=== PATIENT | male | born 1975 | race African-American/Black ===

== ENCOUNTER 2024-02-03 12:28 | Outpatient (AMB) | payer OTHER, SELFPAY ==
--- NOTE | 2024-02-03 13:01 | MHC.PC.OV ---
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 PFSH Family History (Updated 02/03/24 @ 13:36 by Zeb Paz MD) Maternal Grandfather Colon cancer Maternal Grandmother Lung cancer Social History (Updated 02/03/24 @ 13:37 by Zeb Paz MD) Housing: House Alcohol intake: never Patient Tobacco Use Status: Never used Tobacco service: No Current occupational status: unemployed Cognitive needs: No Hearing needs: No Vision needs: No Questionnaire PHQ-9 Over the last 2 weeks, how often have you been bothered by any of the following problems? 1. Little interest or pleasure in doing things: not at all 2. Feeling down, depressed, or hopeless: not at all 3. Trouble falling or staying asleep, or sleeping too much: not at all 4. Feeling tired or having little energy: not at all 5. Poor appetite or overeating: not at all 6. Feeling bad about yourself - or that you are a failure or have let yourself or your family down: not at all 7. Trouble concentrating on things, such as reading the newspaper or watching television: not at all 8. Moving or speaking so slowly that other people could have noticed. Or the opposite - being so fidgety or restless that you have been moving around a lot more than usual: not at all 9. Thoughts that you would be better off or of hurting yourself in some way: not at all Total score: 0 Depression Screening Interpretation: Negative Depression Screening Done: Yes 27461 - PHQ-9 Billing: Yes Source: Developed by Drs. Vinh Wang, Eve Burgos, Elpidio Giraldo and colleagues, with an educational jose eduardo from [employer]. Thrive Questionnaire Date Thrive assessed: 02/03/24 I am a: Patient What is your living situation today?: I have a steady place to live Within the past 12 months, did the food you bought not last and you didn't have the money to get more?: Never true Within the past 12 months, did you worry whether your food would run out before you got money to buy more?: Never true Do you have trouble paying for medicines?: No Do you have trouble getting transportation to medical appointments?: No Do you have trouble paying your heating and electricity bill?: No Do you have trouble taking care of your child, family member or friend?: No Do you have trouble with day-to-day activities such as bathing, preparing meals, shopping, managing finances, etc.?: No Are you currently unemployed and looking for a job?: No Are you interested in more education?: No Please select the resources that you would like help with: None Currently or been in a relationship where the following occur: no concerns reported THRIVE Score: 0 AUDIT C Alcohol Use Questionnaire (AUDIT-C) 1. How often do you have a drink containing alcohol?: Never 2. How many drinks containing alcohol do you have on a typical day when you are drinking?: 1 or 2 (0) 3. How often do you have six or more drinks on one occasion?: Never Total Score: 0 JOSE ALEJANDRO-7 AMB Questionnaire JOSE ALEJANDRO-7 Date JOSE ALEJANDRO - 7 assessed: 02/03/24 Feeling nervous, anxious, or on edge: 0 = Not at all Not being able to stop or control worryin = Not at all Worrying too much about different things: 0 = Not at all Trouble relaxin = Not at all Being so restless that it is hard to sit still: 0 = Not at all Becoming easily annoyed or irritable: 0 = Not at all Feeling afraid as if something awful might happen: 0 = Not at all Total JOSE ALEJANDRO-7 score (0-4 normal; 5-9 mild; 10-14 moderate; 15-21 severe): 0 Source: Developed by Drs. Vinh Wang, Eve Burgos, Elpidio Giraldo and colleagues, with an educational jose eduardo from [employer]. JOSE ALEJANDRO-7 Assessment Billing JOSE ALEJANDRO-7 Assessment Tool: JOSE ALEJANDRO-7 Assessment 24159 Physical exam (Primary Care) Vital Signs: Last Vital Signs Pulse 105 H 02/03/24 13:03 BP 122/96 H 02/03/24 13:03 Pulse Ox 99 02/03/24 13:03 Oxygen Delivery Method Room Air 02/03/24 13:03 BMI result Body Mass Index 20.4 Tobacco/Smoking Status: Tobacco use Status Tobacco use date assessed 02/03/24 02/03/24 13:08 Patient Tobacco Use Status Never used Tobacco 02/03/24 13:25 e-Cigarette/Vaping Use 02/03/24 13:08 PHQ-9: PHQ-9 Score PHQ-9: Total score 0 02/03/24 13:25 Depression Screening Interpretation: Negative Thrive Assessment: Date of Thrive Assessment Date Thrive assessed 02/03/24 02/03/24 13:08 Currently or been in a relationship where the following occur: no concerns reported Const General: alert; No acute distress Eyes Conjunctivae: conjunctivae normal Resp Auscultation: clear to auscultation bilaterally Cardio Rate: regular rate Rhythm: regular rhythm GI Inspection: Yes normal to inspection Extrem General: Yes normal to inspection and No edema Assessment and Plan Assessment & Plan (1) Blood pressure elevated without history of HTN: Code(s): R03.0 - Elevated blood-pressure reading, without diagnosis of hypertension Plan: monitor the BP at home (2) Colon cancer screening: Code(s): Z12.11 - Encounter for screening for malignant neoplasm of colon Plan: cologuard requested Orders: Orders Complete Blood Count Auto Diff Today R03.0 - Elevated blood-pressure reading, without diagnosis of hypertension Comprehensive Met. Panel Today R03.0 - Elevated blood-pressure reading, without diagnosis of hypertension Free T4 (Free Thyroxine) Today R03.0 - Elevated blood-pressure reading, without diagnosis of hypertension Thyroid Stimulating Hormone Today R03.0 - Elevated blood-pressure reading, without diagnosis of hypertension Prostate Specific Antigen Scr Today R03.0 - Elevated blood-pressure reading, without diagnosis of hypertension Lipid Panel Today E78.00 - Pure hypercholesterolemia, unspecified, R03.0 - Elevated blood-pressure reading, without diagnosis of hypertension Vitamin B12 and Folate Today R03.0 - Elevated blood-pressure reading, without diagnosis of hypertension Referrals Cologuard Test Z12.11 - Encounter for screening for malignant neoplasm of colon Medications: New blood pressure monitor (Blood Pressure Kit) As directed 1 ea 0RF I10 - Essential (primary) hypertension, R03.0 - Elevated blood-pressure reading, without diagnosis of hypertension Coding Level of Care Code New Pt Level 4 (68536) Diagnoses Blood pressure elevated without history of HTN R03.0 Colon cancer screening Z12.11 Additional Codes JOSE ALEJANDRO-7 Assessment Billing - JOSE ALEJANDRO-7 Assessment Tool: JOSE ALEJANDRO-7 Assessment [id number] ([id number])
[2024-02-03 13:03] VITALS: BP 122/96; PULSE 105; O2SAT 99; BMI 20.4
[2024-02-03 13:30] VITALS: BP 130/96
== END 2024-02-03 15:16 | disposition home or self-care (01) ==
PROVIDERS: PCP Internal Medicine; Visit Provider Internal Medicine
DX: R03.0 Elevated blood-pressure reading, without diagnosis of hypertension (principal); Z12.11 Encounter for screening for malignant neoplasm of colon
CPT/HCPCS: 99204

== ENCOUNTER 2024-02-15 09:14 | Outpatient (REF) | payer OTHER, SELFPAY ==
[2024-02-15 09:34] LABS: MANUAL DIFF FLAG NO
[2024-02-15 10:43] LABS: Basophils Percent Auto 0.3 % (0-2); Eosinophils Absolute Auto 0.2 X10*3/uL (0.0-0.4); Eosinophils Percent Auto 2.6 % (0-4); Hemoglobin 16.1 g/dl (14.0-18.0); Imm Gran Abs Auto 0.02 X10*3/uL (0.00-0.03); Imm Gran Pct Auto 0.2 % (0.0-0.4); Lymphocytes Absolute Auto 2.3 X10*3/uL (1.2-4.9); Mean Corpuscular HGB Conc 34.3 g/dl (31.0-36.0); Mean Corpuscular Volume 90.4 fL (80.0-98.0); Mean Platelet Volume 10.7 fL (9.4-12.4); Monocytes Absolute Auto 0.7 X10*3/uL (0.1-1.2); Monocytes Percent Auto 8.1 % (2-11); Neutrophils Absolute Auto 5.8 x10*3/uL (2.0-8.3); Neutrophils Percent Auto 63.8 % (45-73); Platelet Count 278 X10*3/uL (160-400); Red Cell Distribution Width 12.7 % (11.0-16.0); White Blood Count 9.1 X10*3/uL (4.8-10.8)
[2024-02-15 12:06] LABS: Alanine Aminotransferase 21 U/L (0-40); Alkaline Phosphatase 82 U/L (39-117); Anion Gap 9 (12-20); Aspartate Amino Transferase 16 U/L (5-37); Bilirubin Total 1.4 mg/dL (0.0-1.0); Blood Urea Nitrogen 10 mg/dL (9-16); Calcium 9.5 mg/dL (8.4-10.2); Carbon Dioxide 30 mmol/L (22-29); Chloride 104 mmol/L (96-108); Cholesterol 143 mg/dL (<200); Estimated Glomerular Filt Rate > 60; Glucose Random 97 mg/dL (60-115); HDL Cholesterol 40 mg/dL (>40); LDL Cholesterol Calculated 79 mg/dL (<100); Potassium 4.4 mmol/L (3.3-5.1); Sodium 139 mmol/L (135-145); Total Protein 8.4 g/dL (6.5-8.0); Triglycerides 120 mg/dL (<150)
[2024-02-15 12:19] LABS: Folate 8.2 ng/mL (> or = 4.0); Prostate Specific Antigen Scr 2.66 ng/mL (<0.05-4.0); Vitamin B12 505 pg/mL (200-900)
[2024-02-15 12:35] LABS: Free T4 (Free Thyroxine) 0.88 ng/dL (0.71-1.85); Thyroid Stimulating Hormone 2.49 uIU/mL (0.32-4.0)
== END 2024-02-15 09:15 | disposition home or self-care (01) ==
LOC: HO.LAB 09:14
PROVIDERS: PCP Internal Medicine; Visit Provider Internal Medicine
DX: R03.0 Elevated blood-pressure reading, without diagnosis of hypertension (principal); E78.00 Pure hypercholesterolemia, unspecified; Z12.5 Encounter for screening for malignant neoplasm of prostate
CPT/HCPCS: 36415; 80053; 80061; 82607; 82746; 84153; 84439; 84443; 85025

== ENCOUNTER 2024-06-30 14:49 | Outpatient (AMB) | payer OTHER, SELFPAY ==
--- NOTE | 2024-06-30 14:53 | A.OFFPC_ITS ---
Vital Signs 06/30/24 14:55 Height 5 ft 11 in BMI Reason not done Patient refused/unable BP 110/80 Blood Pressure Location Rt brachial Position Sitting Pulse 140 H Pulse Source Pulse Oximeter Pulse Oximetry (%) 96 Oxygen Delivery Method Room Air Intake Visit Reasons: annual exam Intake Note: Patient is here today for a physical. Complaint of unsteady gait and hard to hold on to things in hand for almost a year. No dizziness, headache, nausea or vomiting. [employer] Law Clerk Required: No Billing Collections Specialist: Present Accompanied by: Mother Allergies No Known Allergies Allergy (Verified 06/30/24 14:59) Tobacco use date assessed: 06/30/24 Dental Screening Dental Screen Date: 02/03/24 HPI annual exam HPI Details 48-year-old male with a history of eleva cindy blood pressure before coming in for an acute problem. Last seen in January 2024. While in the office has been very unsteady. Patient's is here for physical exam but with the problem NSAIDs this will try to work this up. Mom states in the last year, has been having ataxic gate and has had recurrent falls, does eat as per patient, deny ny n no n no fvers, no ear pain , deny dizziness, nocough, no b;ladder sy but has constipation. [facility] Surgical History (Updated 06/30/24 @ 15:01 by RAMAKRISHNA López) No pertinent past surgical history Family History (Updated 06/30/24 @ 15:02 by RAMAKRISHNA López) Maternal Grandfather Colon cancer Maternal Grandmother Lung cancer Other Mental health disorder Social History Housing: House Alcohol intake: never Patient Tobacco Use Status: Never used Tobacco e-Cigarette/Vaping Use: Never Used Second Hand Smoke Exposure: No service: No Current occupational status: unemployed Cognitive needs: No Hearing needs: No Vision needs: No Questionnaire PHQ-9 Over the last 2 weeks, how often have you been bothered by any of the following problems? 1. Little interest or pleasure in doing things: not at all 2. Feeling down, depressed, or hopeless: not at all 3. Trouble falling or staying asleep, or sleeping too much: not at all 4. Feeling tired or having little energy: nearly every day 5. Poor appetite or overeating: nearly every day 6. Feeling bad about yourself - or that you are a failure or have let yourself or your family down: several days 7. Trouble concentrating on things, such as reading the newspaper or watching television: more than half the days 8. Moving or speaking so slowly that other people could have noticed. Or the opposite - being so fidgety or restless that you have been moving around a lot more than usual: not at all 9. Thoughts that you would be better off or of hurting yourself in some way: several days Total score: 10 Depression Screening Interpretation: Positive Depression Screening Done: Yes Source: Developed by Drs. Vinh Wang, Eve Burgos, Elpidio Giraldo and colleagues, with an educational jose eduardo from [employer]. Thrive Questionnaire Date Thrive assessed: 06/30/24 I am a: Patient What is your living situation today?: I have a steady place to live Within the past 12 months, did the food you bought not last and you didn't have the money to get more?: I choose not to answer this question Within the past 12 months, did you worry whether your food would run out before you got money to buy more?: I choose not to answer this question Do you have trouble paying for medicines?: I choose not to answer this question Do you have trouble getting transportation to medical appointments?: I choose not to answer this question Do you have trouble paying your heating and electricity bill?: I choose not to answer this question Do you have trouble taking care of your child, family member or friend?: I choose not to answer this question Do you have trouble with day-to-day activities such as bathing, preparing meals, shopping, managing finances, etc.?: I choose not to answer this question Are you currently unemployed and looking for a job?: I choose not to answer this question Are you interested in more education?: I choose not to answer this question Please select the resources that you would like help with: None Currently or been in a relationship where the following occur: No concerns reported THRIVE Score: 0 AUDIT C Alcohol Use Questionnaire (AUDIT-C) 1. How often do you have a drink containing alcohol?: Never Total Score: 0 JOSE ALEJANDRO-7 AMB Questionnaire JOSE ALEJANDRO-7 Date JOSE ALEJANDRO - 7 assessed: 02/03/24 Source: Developed by Drs. Vinh Wang, Eve Burgos, Elpidio Giraldo and colleagues, with an educational jose eduardo from [employer]. Physical exam (Primary Care) Vital Signs: Last Vital Signs Pulse 140 H 06/30/24 14:55 BP 110/80 06/30/24 14:55 Pulse Ox 96 06/30/24 14:55 Oxygen Delivery Method Room Air 06/30/24 14:55 Tobacco/Smoking Status: Tobacco use Status Tobacco use date assessed 06/30/24 06/30/24 15:03 Patient Tobacco Use Status Never used Tobacco 06/30/24 15:03 e-Cigarette/Vaping Use Never Used 06/30/24 15:03 PHQ-9: PHQ-9 Score PHQ-9: Total score 10 06/30/24 15:03 Depression Screening Interpretation: Positive Thrive Assessment: Date of Thrive Assessment Date Thrive assessed 06/30/24 06/30/24 15:03 Currently or been in a relationship where the following occur: No concerns reported Const General: alert; No acute distress Eyes Conjunctivae: conjunctivae normal Resp Auscultation: clear to auscultation bilaterally Cardio Rate: regular rate Rhythm: regular rhythm GI Inspection: Yes normal to inspection Extrem General: Yes normal to inspection and No edema Assessment and Plan Assessment & Plan (1) Blood pressure elevated without history of HTN: Code(s): R03.0 - Elevated blood-pressure reading, without diagnosis of hypertension Plan: normal BP (2) Ataxia: Code(s): R27.0 - Ataxia, unspecified Plan: will work up the problem with Ct scan and blood work (3) Constipation: Code(s): K59.00 - Constipation, unspecified (4) Tachycardia: Code(s): R00.0 - Tachycardia, unspecified Plan: ekg requested Orders: Orders CT head/brain wo IV con Today R27.0 - Ataxia, unspecified Complete Blood Count Auto Diff Today R27.0 - Ataxia, unspecified Thyroid Stimulating Hormone Today R27.0 - Ataxia, unspecified ECG 12 lead EKG Today R00.0 - Tachycardia, unspecified Alcohol, Ethyl Urine Screen Today R27.0 - Ataxia, unspecified Comprehensive Met. Panel Today R27.0 - Ataxia, unspecified UA CC w/rflx Micro + Cult Today R27.0 - Ataxia, unspecified, R30.0 - Dysuria Hemoglobin A1c Today R27.0 - Ataxia, unspecified Free T4 (Free Thyroxine) Today R27.0 - Ataxia, unspecified AMB 14 Panel Urine Drug Screen Today R27.0 - Ataxia, unspecified, Z51.81 - Encounter for therapeutic drug level monitoring Referrals Neurology Referral R27.0 - Ataxia, unspecified Coding Level of Care Code Est Pt Level 4 (41104) Diagnoses Blood pressure elevated without history of HTN R03.0 Ataxia R27.0 Constipation K59.00 Tachycardia R00.0
[2024-06-30 14:55] VITALS: BP 110/80; PULSE 140; O2SAT 96
== END 2024-06-30 16:35 | disposition home or self-care (01) ==
PROVIDERS: PCP Internal Medicine; Visit Provider Internal Medicine
DX: R03.0 Elevated blood-pressure reading, without diagnosis of hypertension (principal); R27.0 Ataxia, unspecified; K59.00 Constipation, unspecified; R00.0 Tachycardia, unspecified
CPT/HCPCS: 99214

== ENCOUNTER 2024-06-30 15:56 | Outpatient (REF) | payer OTHER, SELFPAY ==
[2024-06-30 16:07] LABS: MANUAL DIFF FLAG NO
[2024-06-30 17:06] LABS: Basophils Percent Auto 0.3 % (0-2); Eosinophils Absolute Auto 0.1 X10*3/uL (0.0-0.4); Hematocrit 46.6 % (42.0-52.0); Hemoglobin 16.4 g/dl (14.0-18.0); Imm Gran Abs Auto 0.04 X10*3/uL (0.00-0.03); Imm Gran Pct Auto 0.3 % (0.0-0.4); Lymphocytes Absolute Auto 1.4 X10*3/uL (1.2-4.9); Lymphocytes Percent Auto 11.2 % (20-40); Mean Corpuscular HGB Conc 35.2 g/dl (31.0-36.0); Mean Corpuscular Hemoglobin 31.2 pg (27.0-33.0); Mean Corpuscular Volume 88.8 fL (80.0-98.0); Mean Platelet Volume 11.3 fL (9.4-12.4); Monocytes Absolute Auto 0.8 X10*3/uL (0.1-1.2); Monocytes Percent Auto 6.3 % (2-11); Neutrophils Percent Auto 80.9 % (45-73); Platelet Count 294 X10*3/uL (160-400); Red Blood Count 5.25 X10*6/uL (4.60-5.80); White Blood Count 12.4 X10*3/uL (4.8-10.8)
[2024-06-30 17:18] LABS: Estimated Average Glucose 91 mg/dL; Hemoglobin A1c % 4.8 % (<6.0)
[2024-06-30 17:42] LABS: Alanine Aminotransferase 13 U/L (0-40); Albumin Level 4.2 g/dL (3.5-5.0); Alkaline Phosphatase 69 U/L (39-117); Anion Gap 13 (12-20); Aspartate Amino Transferase 14 U/L (5-37); Bilirubin Total 1.7 mg/dL (0.0-1.0); Blood Urea Nitrogen 8 mg/dL (9-16); Calcium 9.7 mg/dL (8.4-10.2); Carbon Dioxide 26 mmol/L (22-29); Chloride 104 mmol/L (96-108); Estimated Glomerular Filt Rate > 60; Glucose Random 115 mg/dL (60-115); Potassium 4.1 mmol/L (3.3-5.1); Sodium 139 mmol/L (135-145); Total Protein 8.5 g/dL (6.5-8.0)
[2024-06-30 17:59] LABS: Free T4 (Free Thyroxine) 0.96 ng/dL (0.71-1.85); Thyroid Stimulating Hormone 0.99 uIU/mL (0.32-4.0)
== END 2024-06-30 15:57 | disposition home or self-care (01) ==
LOC: HO.LAB 15:56
PROVIDERS: PCP Internal Medicine; Visit Provider Internal Medicine
DX: R27.0 Ataxia, unspecified (principal)
CPT/HCPCS: 80053; 83036; 84439; 84443; 85025

== ENCOUNTER → 2024-07-04 10:04 | Outpatient (REF) | payer OTHER, SELFPAY ==
--- NOTE | 2024-07-04 10:09 | ECG_ITS ---
Test Reason : TACHYCARDIA Blood Pressure : / mmHG Vent. Rate : 090 BPM Atrial Rate : 090 BPM P-R Int : 146 ms QRS Dur : 080 ms QT Int : 366 ms P-R-T Axes : 080 064 032 degrees QTc Int : 447 ms Normal sinus rhythm Normal ECG No previous ECGs available Referred By: Zeb Paz Electronically Signed By:RA FOX
== END ==
LOC: HO.CARD 10:04
PROVIDERS: PCP Internal Medicine; Visit Provider Internal Medicine
DX: R00.0 Tachycardia, unspecified (principal)
CPT/HCPCS: 93005

== ENCOUNTER 2024-07-11 07:47 | Outpatient (REF) | payer OTHER, SELFPAY ==
--- NOTE | ~2024-07-11 | CT_ITS ---
EXAMINATION: CT HEAD WITHOUT CONTRAST CLINICAL INFORMATION: Ataxia. COMPARISON: None. TECHNIQUE: Contiguous axial imaging was performed from the skullbase to vertex without intravenous administration of contrast. This CT examination was performed using dose optimization techniques as appropriate, variously including the following: *Automated exposure control *Adjustment of mA and/or kV according to patient size (this includes techniques or standardized protocols for targeted exams where dose is matched to indication/reason for exam; i.e. extremities or head) *Use of iterative reconstruction technique DLP: 800 mGy-cm. FINDINGS: There is no evidence of acute intracranial hemorrhage or territorial infarction. No abnormal mass effect or midline shift is seen. Patino to white matter differentiation is well preserved. No extra-axial fluid collections are identified. There are two subcentimeter low density foci measuring up to 8 mm in size along the lateral borders of the roofs of the lateral ventricles bilaterally which are indeterminate. These foci have a somewhat perpendicular orientation relative to the plane of the corpus callosum. No evidence of hydrocephalus. There is mild to moderate generalized brain parenchymal volume loss for patient age. The osseous structures and soft tissues are normal. The mastoid air cells are well aerated. Mild to moderate posterior right ethmoid sinus mucosal thickening visible. CT/CT head/brain wo IV con IMPRESSION: No acute intracranial hemorrhage or territorial infarction. Mild to moderate generalized brain parenchymal volume loss for patient age. Couple of nonspecific subcentimeter low density foci along the roofs of the lateral ventricles bilaterally as described. Given the unusual morphology and appearance of these findings, the possibility of small demyelinating lesions cannot be ruled out and a follow-up MRI of the brain without and with contrast is recommended for further evaluation. Electronically signed by: Roly Hamilton MD 07/11/2024 04:14 PM EDT
== END 2024-07-11 07:48 | disposition home or self-care (01) ==
LOC: HO.CT 07:47
PROVIDERS: PCP Internal Medicine; Visit Provider Internal Medicine
DX: R27.0 Ataxia, unspecified (principal)
CPT/HCPCS: 70450

== ENCOUNTER 2024-07-28 10:28 | Outpatient (REF) | payer OTHER, SELFPAY ==
--- NOTE | ~2024-07-28 | MR_ITS ---
EXAMINATION: MR BRAIN WITHOUT AND WITH CONTRAST CLINICAL INFORMATION: Ataxia COMPARISON: CT scan of brain on 07/11/2024 TECHNIQUE: Multiplanar, multisequence MRI of the brain was obtained before and after the intravenous administration of 7 mL Gadavist. FINDINGS: Ventricles, sulci and cisterns are normal. Multiple nonenhancing T2 hyperintense lesions are seen in bilateral frontal and parietal subcortical and deep white matters. Many ward radiata lesions are oriented perpendicular to the lateral ventricles producing a Gomez finger configuration. A large 0.8 cm left parasagittal posterior frontal centrum semiovale lesion shows T1 hypointensity, positive black holes sign. Smaller T1 hypointense lesions are also present in right posterior centrum semiovale and right parietal periventricular white matter. Irregular T2 hyperintense patchy lesions are seen in the rostrum, body and splenium of corpus callosum. A prominent lesion is seen in the left internal capsule posterior limb. Additional midline and right lateral pontine T2 hyperintense lesions are present. No focal cerebellar lesions with abnormal signal can be seen. Diffusion weighted images show no abnormal regional decrease in diffusion. Post contrast images show no enhancing cerebral, brainstem or cerebellar lesions. No abnormal meningeal enhancement is seen. The pituitary gland is normal. Optic chiasm is not displaced. Cerebellar tonsils position is normal. Bilateral ethmoid sinuses and lower maxillary sinuses show mild circumferential mucosal thickening. MR/MR head/brain wo/w con IMPRESSION: 1. Multiple nonenhancing T2 hyperintense lesions are seen in bilateral frontal and parietal subcortical and deep white matter, corpus callosum, left internal capsule and tammy. Findings are consistent with demyelinating disease such as multiple sclerosis. 2. Paucity blackhole signs are seen in several centrum semiovale and right parietal periventricular white matter, suspicious of chronic axonal loss. 3. No enhancing lesions are seen to suggest active demyelination. 4. No signs of acute cerebral infarction. Electronically signed by: Nevaeh Rutledge MD 08/23/2024 11:19 AM EDT
[2024-07-28] MEDS: gadobutroL 7.5 ML VIAL IVPUSH (11:24)
== END 2024-07-28 10:29 | disposition home or self-care (01) ==
LOC: HO.MRI 10:28
PROVIDERS: PCP Internal Medicine; Visit Provider Internal Medicine
DX: R27.0 Ataxia, unspecified (principal)
CPT/HCPCS: 70553; A9585

== ENCOUNTER 2024-08-24 09:58 | Outpatient (REF) | payer OTHER, SELFPAY ==
[2024-08-31 23:02] LABS: NMO IgG Autoantibodies NEGATIVE (NEGATIVE)
[2024-09-02 17:03] LABS: MOG IgG NEGATIVE (NEGATIVE)
== END 2024-08-24 09:59 | disposition home or self-care (01) ==
LOC: HO.LAB 09:58
PROVIDERS: PCP Internal Medicine; Visit Provider Psychiatry & Neurology Neurology
DX: G35 Multiple sclerosis (principal)
CPT/HCPCS: 36415; 86052; 86362

== ENCOUNTER 2024-09-11 14:35 | Outpatient (AMB) | payer OTHER, SELFPAY ==
[2024-09-11 14:41] VITALS: BP 130/72; PULSE 104; O2SAT 98; BMI 19.8
--- NOTE | 2024-09-11 14:41 | MHC.PC.OV ---
Vital Signs 09/11/24 14:41 Height 5 ft 11 in Weight 142 lb BMI 19.8 BP 130/72 Blood Pressure Location Lt brachial Position Sitting Pulse 104 H Pulse Source Pulse Oximeter Pulse Oximetry (%) 98 Oxygen Delivery Method Room Air Intake Visit Reasons: ataxia Allergies No Known Allergies Allergy (Verified 09/11/24 14:51) Tobacco use date assessed: 06/30/24 Dental Screening Dental Screen Date: 02/03/24 HPI ataxia HPI Details 49-year-old male with past medical history of elevated blood pressure last seen by Dr. Paz June 2024 coming in for follow up on ataxia.? Patient had head CT that showed low-density foci along the roof of the lateral ventricles bilaterally in the advised to have follow up MRI of the brain which was completed 07/28/2024 and showed:? 1.? Multiple nonenhancing T2 hyperintense lesions are seen in bilateral? frontal and parietal subcortical and deep white matter, corpus? callosum, left internal capsule and tammy. Findings are consistent with? demyelinating disease such as multiple sclerosis. 2.? Paucity blackhole signs are seen in several centrum semiovale and? right parietal periventricular white matter, suspicious of chronic? axonal loss. 3.? No enhancing lesions are seen to suggest active demyelination. 4.? No signs of acute cerebral infarction.? And advised to follow up with neurology. Patient presents today with his mother. Patient states A few months ago, he experienced unstable walking, prompting imaging studies. Currently, the patient reports numbness feeling in his toes and feels physically unstable, despite perceiving stability mentally. He mentioned a history of past head trauma due to sports but no significant brain injury findings on imaging. His symptoms include unsteady gait, and he is seeking a second opinion regarding management. He has taken three MRIs, including one of the brain, back and neck. No definitive treatment has been started, though Dr. Vogt considered steroid therapy. Wanted second opinion and was referred to [facility] but has not yet made an appointment. [facility] Surgical History (Updated 06/30/24 @ 15:01 by RAMAKRISHNA López) No pertinent past surgical history Family History (Updated 06/30/24 @ 15:02 by RAMAKRISHNA López) Maternal Grandfather Colon cancer Maternal Grandmother Lung cancer Other Mental health disorder Social History (Reviewed 09/06/24 @ 14:53 by JULIANNA López Housing: House Alcohol intake: never Patient Tobacco Use Status: Never used Tobacco e-Cigarette/Vaping Use: Never Used Second Hand Smoke Exposure: No service: No Current occupational status: unemployed Cognitive needs: No Hearing needs: No Vision needs: No Questionnaire Thrive Questionnaire Date Thrive assessed: 06/30/24 I am a: Patient What is your living situation today?: I have a steady place to live Within the past 12 months, did the food you bought not last and you didn't have the money to get more?: I choose not to answer this question Within the past 12 months, did you worry whether your food would run out before you got money to buy more?: I choose not to answer this question Do you have trouble paying for medicines?: I choose not to answer this question Do you have trouble getting transportation to medical appointments?: I choose not to answer this question THRIVE Score: 0 AUDIT C Alcohol Use Questionnaire (AUDIT-C) 1. How often do you have a drink containing alcohol?: Never 3. How often do you have six or more drinks on one occasion?: Never Total Score: 0 JOSE ALEJANDRO-7 AMB Questionnaire JOSE ALEJANDRO-7 Date JOSE ALEJANDRO - 7 assessed: 02/03/24 Source: Developed by Drs. Vinh Wang, Eve Burgos, Elpidio Giraldo and colleagues, with an educational jose eduardo from [email or web address]. Review of Systems Const Denies body aches, Denies fever(s) and Denies frequent falls Eyes Denies blind spots, Denies blurry vision and Denies change in vision ENT Reports no additional complaints Card Denies chest pain, Denies syncope, Denies leg edema and Denies lightheadedness GI Reports no additional complaints Reports no additional complaints Musc Reports abnormal gait, Denies back pain and Denies arthralgias Skin/Breast Reports system reviewed and no additional complaints, except as documented Neuro Reports abnormal gait, Denies syncope and Denies frequent falls Physical exam (Primary Care) Vital Signs: Last Vital Signs Pulse 104 H 09/11/24 14:41 BP 130/72 09/11/24 14:41 Pulse Ox 98 09/11/24 14:41 Oxygen Delivery Method Room Air 09/11/24 14:41 BMI result Body Mass Index 19.8 Tobacco/Smoking Status: Tobacco use Status Tobacco use date assessed 06/30/24 09/11/24 14:41 Patient Tobacco Use Status Never used Tobacco 09/11/24 14:41 e-Cigarette/Vaping Use Never Used 09/11/24 14:41 Thrive Assessment: Date of Thrive Assessment Date Thrive assessed 06/30/24 09/11/24 14:41 Const General: cooperative, healthy appearing, comfortable and no acute distress Orientation/consciousness: patient oriented x3 HENMT Head: Yes normocephalic Ears: hearing grossly normal bilaterally General nose exam: Normal external nose present Eyes General: appearance normal, both eyes and all related structures Conjunctivae: conjunctivae normal Neck Neck: Yes full ROM and Yes no lymphadenopathy Resp Effort & Inspection: normal respiratory effort Auscultation: clear to auscultation bilaterally, no crackles, no rales, no rhonchi and no wheezes Cardio Rate: regular rate Rhythm: regular rhythm Skin General skin exam: no rashes or lesions noted Neuro General: patient oriented x3 Gait exam (Neuro): Normal gait present Extrem General: Yes normal to inspection, Yes full ROM and No edema Psych Affect: normal affect Attitude: cooperative Insight: Good insight present (Psych) Judgement: Good judgement present (Psych) Coding Level of Care Code Est Pt Level 3 (06519) Diagnoses Ataxia R27.0 Blood pressure elevated without history of HTN R03.0 Assessment & Plan Assessment & Plan (1) Ataxia: Code(s): R27.0 - Ataxia, unspecified Category: Medical Plan: Patient does show signs of ataxia on exam today. MRI shows evidence of demyelinating process consistent with possible multiple sclerosis. Patient saw Dr. Wilkinson who wanted to start the patient on steroids for treatment of multiple sclerosis and patient is seeking 2nd opinion and was referred to [facility]. He has not yet made an appointment with Neurology. He does have an appointment with Dr. Wilkinson tomorrow and we will request these results. Advised to continue following up with Neurology. (2) Blood pressure elevated without history of HTN: Code(s): R03.0 - Elevated blood-pressure reading, without diagnosis of hypertension Category: Medical Plan: Blood pressure normal on exam today. Continue to avoid salt intake. Encouraged healthy diet and regular exercise as tolerated. Plan This note was constructed using voice recognition software. While every effort has been made to ensure accuracy and eddy current inspector, still areas may have been included sometimes these areas may affect the content or meeting of the given symptoms. Total time spent caring for the patient today was 30 minutes. This includes time spent before the visit reviewing the chart, time spent during the visit, and time spent after the visit and documentation.
== END 2024-09-11 15:20 | disposition home or self-care (01) ==
PROVIDERS: PCP Internal Medicine
DX: R27.0 Ataxia, unspecified (principal); R03.0 Elevated blood-pressure reading, without diagnosis of hypertension

== ENCOUNTER → 2024-09-11 14:35 | Outpatient (BNVA) | payer OTHER, SELFPAY | PROVIDERS: PCP Internal Medicine | DX: R27.0 Ataxia, unspecified (principal); R03.0 Elevated blood-pressure reading, without diagnosis of hypertension | CPT/HCPCS: 99212 ==

== ENCOUNTER 2024-09-20 08:30 | Outpatient (RCR) | payer OTHER, SELFPAY ==
[2024-09-18 11:12] VITALS: BP 138/99; PULSE 93; RESP 16; TEMP 37.2; O2SAT 99
[2024-09-18] MEDS: methylPREDNISolone Sod Succ 1,000 MG in 0.9 % Sodium Chloride 50 ML 66 MG IV (11:24)
[2024-09-19 09:37] VITALS: BP 126/87; PULSE 116; RESP 16; TEMP 37.2; O2SAT 99
[2024-09-19] MEDS: methylPREDNISolone Sod Succ 1,000 MG in 0.9 % Sodium Chloride 50 ML 66 MG IV (09:48)
[2024-09-20 07:48] VITALS: BP 122/86; PULSE 86; RESP 18; TEMP 36.3
[2024-09-20] MEDS: methylPREDNISolone Sod Succ 1,000 MG in 0.9 % Sodium Chloride 50 ML 66 MG IV (07:53)
== END 2024-09-20 08:53 | disposition home or self-care (01) ==
LOC: HO.INF 08:30
PROVIDERS: Visit Provider Psychiatry & Neurology Neurology
DX: G35 Multiple sclerosis (principal)
CPT/HCPCS: 96365; J2919

== ENCOUNTER 2024-11-06 09:34 | Outpatient (AMB) | payer OTHER, SELFPAY ==
[2024-11-06 09:37] VITALS: BP 140/98; PULSE 94; O2SAT 97; BMI 21.2
--- NOTE | 2024-11-06 09:37 | MHC.PC.OV ---
Vital Signs 11/06/24 09:37 Height 5 ft 11 in Weight 152 lb 4 oz BMI 21.2 BP 140/98 H Blood Pressure Location Lt brachial Position Sitting Pulse 94 Pulse Source Pulse Oximeter Pulse Oximetry (%) 97 Oxygen Delivery Method Room Air Intake Visit Reasons: ataxia Allergies No Known Allergies Allergy (Verified 11/06/24 09:40) Tobacco use date assessed: 11/06/24 Dental Screening Dental Screen Date: 11/06/24 Did you have a dental visit in the last 12 months?: No Did you have a dental problem in the last 6 months where you did not have access to dental care?: No Was dental information given to patient?: Yes HPI ataxia HPI Details History of Present Illness The patient is a 49-year-old male presenting with persistent Essential Hypertension. He reported that he no longer monitors his blood pressure at home, noting that his previous readings have been elevated. History indicates poor compliance with documentation of blood pressure over time, a arthur indicator needed for ongoing management. He also reports a known history of Psoriasis, currently affecting his scalp. It has been treated in the past with an unspecified topical treatment. No new treatments have been initiated, and the patient is seeking consultation for further management. Additionally, the patient has a history of Constipation which has prompted a need for referral to a senior dynamics crm developer, Dr. Byers, specifically for further evaluation and possible colonoscopy. He has decided against less invasive stool-based screening tests but changed mind. The patient also requested a routine vision screening in the absence of symptoms, to ensure preventive eye health and obtain baseline checks. Lastly, there was discussion regarding a referral to a neurologist at [facility] following issues possibly related to neurological concerns. The patient is in the process of engaging with specialist care for confirmation and guidance on required interventions. Physical Exam General: Cooperative, healthy appearing, comfortable, no acute distress and well developed Orientation: Patient oriented x3 Limitations: No limitations Head: Normal to inspection Ears: Hearing grossly normal bilaterally Nose: Normal external nose present Face and sinus: Normal facial exam Eyes: Appearance normal, both eyes and all related structures Neck: Normal visual inspection and Yes full ROM Respiratory: Normal respiratory effort and able to speak in complete sentences. Clear to auscultation bilaterally Cardiovascular: Regular rate and rhythm. Normal S1 and S2 GI: Normal to inspection. Soft to palpation and nontender Skin: Psoriasis noted on the scalp Neuro: Patient oriented x3 Extremities: Normal to inspection Plan - For Essential Hypertension, advise home monitoring of blood pressure at least once or twice a week with documentation of readings. Reinforce lifestyle modifications including dietary adjustments, exercise, and weight management. - Refer to Dr. Byers in gastroenterology for further evaluation and management of constipation and to discuss the appropriateness of colonoscopy versus stool-based tests. - Referral to [facility] for further neurological evaluation and management. Follow-up on any new diagnoses or treatment recommendations. - Referral to ophthalmology for a comprehensive eye exam given the patient?s request for baseline visual health screening. - Referral to dermatology for evaluation and management of scalp Psoriasis. Consider topical treatments such as medicated shampoos as initial management. - Reinforce preventive healthcare measures including vaccines, particularly for influenza given the current season, and encourage staying updated with COVID-19 vaccinations. Patient was informed and verbally consented to the use of an ambient scribe for clinic note documentation during this visit. [facility] Medical History (Updated 11/06/24 @ 09:58 by Zeb Paz MD) Colon cancer screening Colonoscopy refused Surgical History No pertinent past surgical history Family History Maternal Grandfather Colon cancer Maternal Grandmother Lung cancer Other Mental health disorder Social History Housing: House Alcohol intake: never Patient Tobacco Use Status: Never used Tobacco e-Cigarette/Vaping Use: Never Used Second Hand Smoke Exposure: No service: No Current occupational status: unemployed Cognitive needs: No Hearing needs: No Vision needs: No Questionnaire Thrive Questionnaire Date Thrive assessed: 11/06/24 JOSE ALEJANDRO-7 AMB Questionnaire JOSE ALEJANDRO-7 Date JOSE ALEJANDRO - 7 assessed: 02/03/24 Source: Developed by Drs. Vinh Wang, Eve Burgos, Elpidio Giraldo and colleagues, with an educational jose eduardo from [employer]. Physical exam (Primary Care) Vital Signs: Last Vital Signs Pulse 94 11/06/24 09:37 BP 140/98 H 11/06/24 09:37 Pulse Ox 97 11/06/24 09:37 Oxygen Delivery Method Room Air 11/06/24 09:37 BMI result Body Mass Index 21.2 Tobacco/Smoking Status: Tobacco use Status Tobacco use date assessed 11/06/24 11/06/24 09:42 Patient Tobacco Use Status Never used Tobacco 11/06/24 09:42 e-Cigarette/Vaping Use Never Used 11/06/24 09:42 Thrive Assessment: Date of Thrive Assessment Date Thrive assessed 11/06/24 11/06/24 09:42 Const General: alert; No acute distress Eyes Conjunctivae: conjunctivae normal Resp Auscultation: clear to auscultation bilaterally Cardio Rate: regular rate Rhythm: regular rhythm GI Inspection: Yes normal to inspection Extrem General: Yes normal to inspection and No edema Coding Level of Care Code Est Pt Level 4 (71968) Diagnoses Ataxia R27.0 Demyelinating disease G37.9 Blood pressure elevated without history of HTN R03.0 Constipation K59.00 Colon cancer screening Z12.11 Vision changes H53.9 Seborrhea L21.9 Assessment & Plan Assessment & Plan (1) Ataxia: Code(s): R27.0 - Ataxia, unspecified Category: Medical (2) Demyelinating disease: Code(s): G37.9 - Demyelinating disease of central nervous system, unspecified Category: Medical (3) Blood pressure elevated without history of HTN: Code(s): R03.0 - Elevated blood-pressure reading, without diagnosis of hypertension Category: Medical (4) Constipation: Code(s): K59.00 - Constipation, unspecified Category: Medical (5) Colon cancer screening: Code(s): Z12.11 - Encounter for screening for malignant neoplasm of colon Category: Medical (6) Vision changes: Code(s): H53.9 - Unspecified visual disturbance Category: Medical (7) Seborrhea: Code(s): L21.9 - Seborrheic dermatitis, unspecified Category: Medical Plan History of Present Illness The patient is a 49-year-old male presenting with persistent Essential Hypertension. He reported that he no longer monitors his blood pressure at home, noting that his previous readings have been elevated. History indicates poor compliance with documentation of blood pressure over time, a arthur indicator needed for ongoing management. He also reports a known history of Psoriasis, currently affecting his scalp. It has been treated in the past with an unspecified topical treatment. No new treatments have been initiated, and the patient is seeking consultation for further management. Additionally, the patient has a history of Constipation which has prompted a need for referral to a senior dynamics crm developer, Dr. Byers, specifically for further evaluation and possible colonoscopy. He has decided against less invasive stool-based screening tests but changed mind. The patient also requested a routine vision screening in the absence of symptoms, to ensure preventive eye health and obtain baseline checks. Lastly, there was discussion regarding a referral to a neurologist at [facility] following issues possibly related to neurological concerns. The patient is in the process of engaging with specialist care for confirmation and guidance on required interventions. Physical Exam General: Cooperative, healthy appearing, comfortable, no acute distress and well developed Orientation: Patient oriented x3 Limitations: No limitations Head: Normal to inspection Ears: Hearing grossly normal bilaterally Nose: Normal external nose present Face and sinus: Normal facial exam Eyes: Appearance normal, both eyes and all related structures Neck: Normal visual inspection and Yes full ROM Respiratory: Normal respiratory effort and able to speak in complete sentences. Clear to auscultation bilaterally Cardiovascular: Regular rate and rhythm. Normal S1 and S2 GI: Normal to inspection. Soft to palpation and nontender Skin: Psoriasis noted on the scalp Neuro: Patient oriented x3 Extremities: Normal to inspection Plan - For Essential Hypertension, advise home monitoring of blood pressure at least once or twice a week with documentation of readings. Reinforce lifestyle modifications including dietary adjustments, exercise, and weight management. - Refer to Dr. Byers in gastroenterology for further evaluation and management of constipation and to discuss the appropriateness of colonoscopy versus stool-based tests. - Referral to [facility] for further neurological evaluation and management. Follow-up on any new diagnoses or treatment recommendations. - Referral to ophthalmology for a comprehensive eye exam given the patient?s request for baseline visual health screening. - Referral to dermatology for evaluation and management of scalp Psoriasis. Consider topical treatments such as medicated shampoos as initial management. - Reinforce preventive healthcare measures including vaccines, particularly for influenza given the current season, and encourage staying updated with COVID-19 vaccinations. Patient was informed and verbally consented to the use of an ambient scribe for clinic note documentation during this visit. Orders: Referrals Gastroenterology Referral K59.00 - Constipation, unspecified, Z12.11 - Encounter for screening for malignant neoplasm of colon Dermatology Referral L21.9 - Seborrheic dermatitis, unspecified Neurology Referral G37.9 - Demyelinating disease of central nervous system, unspecified Ophthalmology Referral H53.9 - Unspecified visual disturbance Medications: New ketoconazole 2% 1 appl topical 2XW 120 mL 0RF L21.9 - Seborrheic dermatitis, unspecified
== END 2024-11-06 10:06 | disposition home or self-care (01) ==
PROVIDERS: PCP Internal Medicine; Visit Provider Internal Medicine
DX: R27.0 Ataxia, unspecified (principal); G37.9 Demyelinating disease of central nervous system, unspecified; R03.0 Elevated blood-pressure reading, without diagnosis of hypertension; K59.00 Constipation, unspecified; Z12.11 Encounter for screening for malignant neoplasm of colon; H53.9 Unspecified visual disturbance; L21.9 Seborrheic dermatitis, unspecified

== ENCOUNTER → 2024-11-06 09:34 | Outpatient (BNVA) | payer OTHER, SELFPAY | PROVIDERS: PCP Internal Medicine; Visit Provider Internal Medicine | DX: R27.0 Ataxia, unspecified (principal); G37.9 Demyelinating disease of central nervous system, unspecified; R03.0 Elevated blood-pressure reading, without diagnosis of hypertension; K59.00 Constipation, unspecified; H53.9 Unspecified visual disturbance; L21.9 Seborrheic dermatitis, unspecified | CPT/HCPCS: 99212 ==

== ENCOUNTER → 2024-11-29 08:34 | Outpatient (BNVA) | payer OTHER, SELFPAY | PROVIDERS: PCP Internal Medicine; Visit Provider Psychiatry & Neurology Neurology | DX: G35 Multiple sclerosis (principal) | CPT/HCPCS: 99202 ==

== ENCOUNTER 2025-01-10 09:13 | Outpatient (REF) | payer OTHER, SELFPAY ==
[2025-01-10 09:42] LABS: MANUAL DIFF FLAG NO
[2025-01-10 10:39] LABS: Basophils Percent Auto 0.4 % (0-2); Eosinophils Absolute Auto 0.2 X10*3/uL (0.0-0.4); Eosinophils Percent Auto 2.4 % (0-4); Hematocrit 45.5 % (42.0-52.0); Hemoglobin 15.9 g/dl (14.0-18.0); Imm Gran Abs Auto 0.02 X10*3/uL (0.00-0.03); Imm Gran Pct Auto 0.3 % (0.0-0.4); Lymphocytes Percent Auto 26.1 % (20-40); Mean Corpuscular HGB Conc 34.9 g/dl (31.0-36.0); Mean Corpuscular Hemoglobin 31.3 pg (27.0-33.0); Mean Corpuscular Volume 89.6 fL (80.0-98.0); Monocytes Absolute Auto 0.7 X10*3/uL (0.1-1.2); Neutrophils Absolute Auto 4.7 x10*3/uL (2.0-8.3); Neutrophils Percent Auto 61.8 % (45-73); Platelet Count 256 X10*3/uL (160-400); Red Blood Count 5.08 X10*6/uL (4.60-5.80); Red Cell Distribution Width 13.2 % (11.0-16.0); White Blood Count 7.7 X10*3/uL (4.8-10.8)
[2025-01-10 11:25] LABS: Alanine Aminotransferase 19 U/L (0-40); Albumin Level 4.1 g/dL (3.5-5.0); Alkaline Phosphatase 63 U/L (39-117); Aspartate Amino Transferase 17 U/L (5-37); Bilirubin Direct 0.5 mg/dL (0.0-0.5); Bilirubin Total 1.6 mg/dL (0.0-1.0); Total Protein 8.3 g/dL (6.5-8.0)
== END 2025-01-10 09:14 | disposition home or self-care (01) ==
LOC: HO.LAB 09:13
PROVIDERS: PCP Internal Medicine; Visit Provider Psychiatry & Neurology Neurology
DX: G35 Multiple sclerosis (principal)
CPT/HCPCS: 36415; 80076; 85025

== ENCOUNTER 2025-02-05 09:46 | Outpatient (REF) | payer OTHER, SELFPAY ==
[2025-02-05 10:55] LABS: MANUAL DIFF FLAG NO
[2025-02-05 11:05] LABS: Basophils Absolute Auto 0.1 X10*3/uL (0.0-0.2); Basophils Percent Auto 0.8 % (0-2); Eosinophils Absolute Auto 0.2 X10*3/uL (0.0-0.4); Eosinophils Percent Auto 2.4 % (0-4); Hematocrit 48.9 % (42.0-52.0); Imm Gran Abs Auto 0.02 X10*3/uL (0.00-0.03); Imm Gran Pct Auto 0.3 % (0.0-0.4); Lymphocytes Absolute Auto 1.2 X10*3/uL (1.2-4.9); Lymphocytes Percent Auto 17.8 % (20-40); Mean Corpuscular HGB Conc 34.8 g/dl (31.0-36.0); Mean Corpuscular Hemoglobin 31.6 pg (27.0-33.0); Mean Corpuscular Volume 90.9 fL (80.0-98.0); Mean Platelet Volume 10.5 fL (9.4-12.4); Monocytes Absolute Auto 0.5 X10*3/uL (0.1-1.2); Monocytes Percent Auto 8.1 % (2-11); Neutrophils Absolute Auto 4.7 x10*3/uL (2.0-8.3); Neutrophils Percent Auto 70.6 % (45-73); Platelet Count 231 X10*3/uL (160-400); Red Blood Count 5.38 X10*6/uL (4.60-5.80); White Blood Count 6.6 X10*3/uL (4.8-10.8)
[2025-02-05 11:47] LABS: Erythrocyte Sedimentation Rate 2 MM/HR (0-15)
[2025-02-05 11:53] LABS: Alanine Aminotransferase 54 U/L (0-40); Albumin Level 4.2 g/dL (3.5-5.0); Alkaline Phosphatase 73 U/L (39-117); Anion Gap 10 (12-20); Aspartate Amino Transferase 26 U/L (5-37); Bilirubin Total 1.4 mg/dL (0.0-1.0); Blood Urea Nitrogen 9 mg/dL (9-16); Calcium 9.5 mg/dL (8.4-10.2); Carbon Dioxide 30 mmol/L (22-29); Chloride 103 mmol/L (96-108); Cholesterol 151 mg/dL (<200); Estimated Glomerular Filt Rate > 60; Glucose Random 103 mg/dL (60-115); HDL Cholesterol 40 mg/dL (>40); LDL Cholesterol Calculated 73 mg/dL (<100); Potassium 4.5 mmol/L (3.3-5.1); Sodium 138 mmol/L (135-145); Total Protein 7.9 g/dL (6.5-8.0); Triglycerides 193 mg/dL (<150)
[2025-02-05 12:10] LABS: Folate 13.7 ng/mL (> or = 4.0); Prostate Specific Antigen Scr 4.11 ng/mL (<0.05-4.0); Vitamin B12 603 pg/mL (200-900)
[2025-02-05 12:12] LABS: Free T4 (Free Thyroxine) 1.07 ng/dL (0.71-1.85); Thyroid Stimulating Hormone 2.21 uIU/mL (0.32-4.0)
== END 2025-02-05 09:47 | disposition home or self-care (01) ==
LOC: HO.LAB 09:46
PROVIDERS: PCP Internal Medicine; Visit Provider Internal Medicine
DX: G35 Multiple sclerosis (principal); E78.00 Pure hypercholesterolemia, unspecified; L21.9 Seborrheic dermatitis, unspecified; R03.0 Elevated blood-pressure reading, without diagnosis of hypertension
CPT/HCPCS: 36415; 80053; 80061; 82607; 82746; 84153; 84439; 84443; 85025; 85652; 96127; 99212

== ENCOUNTER 2025-02-05 09:46 | Outpatient (AMB) | payer OTHER, SELFPAY ==
[2025-02-05 09:48] VITALS: BP 132/66; PULSE 117; TEMP 36.3; O2SAT 97; BMI 20.8
--- NOTE | 2025-02-05 09:48 | A.OFFPC_ITS ---
Vital Signs 02/05/25 09:48 Height 5 ft 11 in Weight 149 lb 8 oz BMI 20.8 BP 132/66 Blood Pressure Location Lt brachial Position Sitting Pulse 117 H Pulse Source Pulse Oximeter Temp 97.3 F Temp Source Temporal Artery Scan Pulse Oximetry (%) 97 Oxygen Delivery Method Room Air Intake Visit Reasons: 3 Months f/u Accompanied by: Mother Allergies No Known Allergies Allergy (Verified 02/05/25 09:48) Tobacco use date assessed: 11/06/24 Dental Screening Dental Screen Date: 11/06/24 Did you have a dental visit in the last 12 months?: No Did you have a dental problem in the last 6 months where you did not have access to dental care?: No Was dental information given to patient?: Yes HPI 3 Months f/u HPI Details Has gone to [facility] and trreated with ocrevus first 2 weeks then 6 months. opthalmology seeing February 22 specialty [facility] Medical History Multiple sclerosis, relapsing-remitting Colon cancer screening Colonoscopy refused Surgical History No pertinent past surgical history Family History Maternal Grandfather Colon cancer Maternal Grandmother Lung cancer Other Mental health disorder Social History Housing: House Alcohol intake: never Patient Tobacco Use Status: Never used Tobacco e-Cigarette/Vaping Use: Never Used Second Hand Smoke Exposure: No service: No Current occupational status: unemployed Cognitive needs: No Hearing needs: No Vision needs: No Questionnaire PHQ-9 Over the last 2 weeks, how often have you been bothered by any of the following problems? 1. Little interest or pleasure in doing things: not at all 2. Feeling down, depressed, or hopeless: not at all 3. Trouble falling or staying asleep, or sleeping too much: not at all 4. Feeling tired or having little energy: not at all 5. Poor appetite or overeating: not at all 6. Feeling bad about yourself - or that you are a failure or have let yourself or your family down: not at all 7. Trouble concentrating on things, such as reading the newspaper or watching television: not at all 8. Moving or speaking so slowly that other people could have noticed. Or the opposite - being so fidgety or restless that you have been moving around a lot more than usual: not at all 9. Thoughts that you would be better off or of hurting yourself in some way: not at all Total score: 0 Depression Screening Interpretation: Negative Depression Screening Done: Yes 37963 - PHQ-9 Billing: Yes Source: Developed by Drs. Vinh Wang, Eve Burgos, Elpidio Giraldo and colleagues, with an educational jose eduardo from [employer]. Thrive Questionnaire Date Thrive assessed: 11/06/24 I am a: Patient What is your living situation today?: I have a steady place to live Within the past 12 months, did the food you bought not last and you didn't have the money to get more?: Never true Within the past 12 months, did you worry whether your food would run out before you got money to buy more?: Never true Do you have trouble paying for medicines?: No Do you have trouble getting transportation to medical appointments?: No Do you have trouble paying your heating and electricity bill?: No Do you have trouble taking care of your child, family member or friend?: No Do you have trouble with day-to-day activities such as bathing, preparing meals, shopping, managing finances, etc.?: No Are you currently unemployed and looking for a job?: No Are you interested in more education?: No THRIVE Score: 0 AUDIT C Alcohol Use Questionnaire (AUDIT-C) 1. How often do you have a drink containing alcohol?: Never 3. How often do you have six or more drinks on one occasion?: Never Total Score: 0 JOSE ALEJANDRO-7 AMB Questionnaire JOSE ALEJANDRO-7 Date JOSE ALEJANDRO - 7 assessed: 02/03/24 Feeling nervous, anxious, or on edge: 0 = Not at all Not being able to stop or control worryin = Not at all Worrying too much about different things: 0 = Not at all Trouble relaxin = Not at all Being so restless that it is hard to sit still: 0 = Not at all Becoming easily annoyed or irritable: 0 = Not at all Feeling afraid as if something awful might happen: 0 = Not at all Total JOSE ALEJANDRO-7 score (0-4 normal; 5-9 mild; 10-14 moderate; 15-21 severe): 0 Source: Developed by Drs. Vinh Wang, Eve Burgos, Elpidio Giraldo and colleagues, with an educational jose eduardo from [employer]. JOSE ALEJANDRO-7 Assessment Billing JOSE ALEJANDRO-7 Assessment Tool: JOSE ALEJANDRO-7 Assessment 53752 Physical exam (Primary Care) Vital Signs: Last Vital Signs Temp 97.3 F 02/05/25 09:48 Pulse 117 H 02/05/25 09:48 BP 132/66 02/05/25 09:48 Pulse Ox 97 02/05/25 09:48 Oxygen Delivery Method Room Air 02/05/25 09:48 BMI result Body Mass Index 20.8 Tobacco/Smoking Status: Tobacco use Status Tobacco use date assessed 11/06/24 02/05/25 09:56 Patient Tobacco Use Status Never used Tobacco 02/05/25 09:56 e-Cigarette/Vaping Use Never Used 02/05/25 09:56 PHQ-9: PHQ-9 Score PHQ-9: Total score 0 02/05/25 10:16 Depression Screening Interpretation: Negative Thrive Assessment: Date of Thrive Assessment Date Thrive assessed 11/06/24 02/05/25 09:56 Const General: alert; No acute distress Eyes Conjunctivae: conjunctivae normal Resp Auscultation: clear to auscultation bilaterally Cardio Rate: regular rate Rhythm: regular rhythm GI Inspection: Yes normal to inspection Extrem General: Yes normal to inspection and No edema Coding Level of Care Code Est Pt Level 4 (47991) Diagnoses Multiple sclerosis, relapsing-remitting G35 Seborrhea L21.9 Blood pressure elevated without history of HTN R03.0 Additional Codes JOSE ALEJANDRO-7 Assessment Billing - JOSE ALEJANDRO-7 Assessment Tool: JOSE ALEJANDRO-7 Assessment 23570 ([id number]) PHQ-9 - 70869 - PHQ-9 Billing: Yes ([id number]) Assessment & Plan Assessment & Plan (1) Multiple sclerosis, relapsing-remitting: Comment: Multiple lesions in C spine, T spine , Brainstem etc Code(s): G35 - Multiple sclerosis Category: Medical Plan: Patient has seen Neurology and has been referred to multiple sclerosis Center for better aggressive treatment presently on Ocrevus (2) Seborrhea: Code(s): L21.9 - Seborrheic dermatitis, unspecified Category: Medical Plan: Patient has referred to Dermatology by the did not see the results. (3) Blood pressure elevated without history of HTN: Code(s): R03.0 - Elevated blood-pressure reading, without diagnosis of hypertension Category: Medical Plan: Blood pressure is better with no medication. Plan History of Present Illness The patient is a 49-year-old male presenting with a follow-up for blood pressure management and ongoing multiple sclerosis treatment. He is currently on Ocrevus, having been moved from dimethyl fumarate, to manage multiple sclerosis more aggressively. His ophthalmological assessments detail optic atrophy, immature cataracts, and vitreomacular adhesions; a follow-up with Dr. Torres for these visual concerns is arranged. Ophthalmology indicated cataracts not yet mature enough for surgical intervention. Blood pressure initially raised concerns but was noted to have improved, ciera suring 132/66 mmHg during this visit. However, there was a noted increased heart rate, potentially exacerbated by dehydration; therefore, encouragement to increase water intake was provided. Dermatological concerns were noted with attempts to schedule appropriate follow up for skin issues. Further management for blood pressure and potential dermatology visits remain part of the ongoing care plan. Health Maintenance - Blood pressure monitoring shows improvement, currently managed without medication. - Encouraged adequate hydration over consuming high sugar juices for cardiovascular health. - Scheduled ophthalmology follow-up for optic atrophy and cataracts, although no intervention needed at this stage. - Arranged dermatology referral, pending further evaluation for skin condition. - Planned evaluations of sugars, cholesterol, and thyroid in future blood work. Social History - Reports consuming orange juice regularly, advised to increase water intake. - History of family prostate cancer with father having succumbed to the condition. - No current problems in urination. Review of Systems - Cardiovascular: Reports increased heart rate. - Ophthalmological: Reports decreased vision due to optic atrophy. Denies immediate changes. - Dermatological: Reports dry skin, awaiting dermatology consultation. - Genitourinary: Denies urinary problems. Physical Exam - Cardiovascular- Heart rate observed as elevated. - Vital Signs- Blood pressure measured at 132/66 mmHg. Results - Labs: Recent normal blood count, electrolytes, and liver function tests from December. - Diagnostic imaging: Optic atrophy, cataracts, and vitreomacular adhesions noted. Plan The patient will continue on Ocrevus with the next infusion planned in two weeks. Blood pressure, currently well-managed at 132/66 mmHg, suggests no need for therapeutic intervention. However, increased hydration is crucial to manage heart rate. Scheduled blood work will screen for thyroid function, blood sugars, and cholesterol, taking notice of dietary habits, particularly high intake of orange juice. Ongoing ophthalmology care is arranged, with follow-up set to assess optic changes on February 22. Dermatology care will be coordinated anew due to previous arrangements not materializing. Awareness of prostate cancer due to family history dictates that preventative screenings should begin sooner than the standard protocol. Patient was informed and verbally consented to the use of an ambient scribe for clinic note documentation during this visit. Discussion Notes During today's visit, we discussed ongoing management of multiple sclerosis with Ocrevus, and its scheduling, benefits, and expected outcomes. I explained the significance of hydration in cardiovascular health, emphasizing it as a non- pharmacological approach to potentially lower heart rate. We've arranged ophthalmology follow-up for optic atrophy and discussed the non-urgent status of cataracts. Dermatological care was reviewed with a plan to redirect to an available specialist. Preventative discussions included a lateral approach to prostate cancer screenings earlier than routine due to family history, and complete blood testing panels to preemptive screen for potential metabolic disturbances. The patient was receptive to instructions provided. Patient Instructions - Ensure regular Ocrevus infusions as scheduled. - Maintain adequate hydration, prioritizing water intake. - Monitor heart rate and report any significant changes. - Attend follow-up ophthalmology appointment on February 22. - Rearrange dermatology consult if not contacted soon. - Follow up with scheduled lab work for thyroid, cholesterol, and sugars. - Begin prostate-specific screenings ahead of schedule due to family history. - Be cautious of high sugar intake from fruit juices and consider alternatives. Orders: Orders Comprehensive Met. Panel Today G35 - Multiple sclerosis Free T4 (Free Thyroxine) Today G35 - Multiple sclerosis Vitamin B12 and Folate Today G35 - Multiple sclerosis Prostate Specific Antigen Scr Today G35 - Multiple sclerosis Complete Blood Count Auto Diff Today G35 - Multiple sclerosis Thyroid Stimulating Hormone Today G35 - Multiple sclerosis Lipid Panel Today E78.00 - Pure hypercholesterolemia, unspecified, G35 - Multiple sclerosis Erythrocyte Sedimentation Rate Today G35 - Multiple sclerosis Referrals Dermatology Referral L21.9 - Seborrheic dermatitis, unspecified Cologuard Test Z12.11 - Encounter for screening for malignant neoplasm of colon Medications: Refilled ketoconazole 2% 1 appl topical 2XW 120 mL 0RF L21.9 - Seborrheic dermatitis, unspecified
--- OUTSIDE RECORDS SUMMARY | 2025-02-05 10:58 | XMS_ITS | Encounter Summary ---
Author Organization [facility] Address [address] [place] [address] Care Team Providers Care Aligning Checker Name Role Phone Zeb Paz MD Primary Care Provider [phone] Reason for Visit * Episode Based Medications (Routine) - Authorized Specialty Diagnoses / Procedures Referred By Contdarell t Referred To Contact Infusion Therapy Diagnoses Multiple sclerosis (CMS/HCC V24, CMS/HCC V28) Livier Sanchez MD [address] [address] Phone: tel: fax: [facility] [place] [facility] [place] [address] [address] Phone: tel: fax: Referral ID Status Reason Start Date Expiration Date V isits Requested Visits Authorized [id number] Authorized 01/19/2025 01/18/2026 3 3 Encounter Details Date Type Department Care Team (Latest Contact Info) Description 02/01/2025 7:35 AM EDT - 02/01/2025 11:59 PM EDT Hospital Encounter [facility] [place] [address] [address] MS (multiple sclerosis) (CMS/HCC V24, CMS/HCC V28) (Primary Dx) Discharge Disposition: Home or Self Care Social History Tobacco Use Types Packs/Day Years Used Date Smoking Tobacco: Never Assessed Sex and Gender Information Value Date Recorded Sex Assigned at Not on file Legal Sex Male 4:18 PM EST Gender Identity Not on file Sexual Orientation Not on file documented as of this encounter Last Filed Vital Signs Vital Sign Reading Time Taken Comments Blood Pressure 138/97 02/01/2025 11:42 AM EDT Pulse 106 02/01/2025 11:42 AM EDT Temperature 36.2 ??C (97.1 ??F) 02/01/2025 11:42 AM E DT Respiratory Rate 18 02/01/2025 11:42 AM EDT Oxygen Saturation 98% 02/01/2025 11:42 AM EDT Inhaled Oxygen Concentration - - Weight - - Height - - Body Mass Index - - documented in this encounter Medications at Time of Discharge dimethyl fumarate 240 mg capsule,delayed release(/EC) 12/05/2024 ergocalciferol (VITAMIN D-2) 1,250 mcg (50,000 unit) capsule Take 1 capsule (50,000 Units total) by mouth 1 (one) time per week. 4 each 11 01/05/2025 01/05/2026 documented as of this encounter Discharge Disposition Disposition Code Departure Means Destination Home or Self Care documented in this encounter Progress Notes * Michelle Strong RN - 02/01/2025 8:00 AM EDT Ocrevus dose #1 300mg Infusion completed - Rates per Protocol Pt. premedicated with 500ml NS, 975mg PO Tylenol, 50mg IVP Benadryl, and 125mg IVP Solumedrol. Labs: 12/08/24 Brain MRI: Cervical MRI: 09/07/24 Provider: Dr. Sanchez Last appointment: 01/05/25 Next appointment: 04/10/25 2 week subsequent infusion: 02/15/25 Pt. Completed one hour observation period. New patient teaching done. Pt. verbalized understanding of all discharge instructions and future appointment dates/times provided. Pt tolerated infusion without incident. VSS. IV removed. Pt. discharged home with ride from Mother. documented in this encounter Plan of Treatment Upcoming Encounters Date Type Department Care Team (Late st Contact Info) Description 02/15/2025 8:30 AM EDT Appointment [facility] [address] [place] [id number] 04/10/2025 8:30 AM EDT Office Visit [facility] [place] [facility] [place] [facility] [place] 175 [facility] [address] [place] [phone] Livier Sanchez MD 175 [facility] [address] [place] [address] documented as of this encounter Visit Diagnoses Diagnosis MS (multiple sclerosis) (CMS/HCC V24, CMS/[facility] V28)- Primary Multiple sclerosis documented in this encounter Administered Medications Inactive Administered Medications - up to 3 most recent administrations Medication Order MAR Action Action Date Dose Rate Site acetaminophen (TYLENOL) tablet 975 mg 975 mg, oral, Once, On Charisse 02/01/25 at 0800, For 1 doseIndications:MS (multiple sclerosis) (CMS/HCC V24, CMS/HCC V28) Given 02/01/2025 8:26 AM EDT 975 mg diphenhydrAMINE (BENADRYL) injection 50 mg 50 mg, intravenous, Once, On Charisse 02/01/25 at 0800, For 1 doseIndications:MS (multiple sclerosis) (CMS/HCC V24, CMS/HCC V28) Given 02/01/2025 8:27 AM EDT 50 mg methylPREDNISolone sodium succ (SOLU-Medrol) injection 125 mg 125 mg, intravenous, Once, On Charisse 02/01/25 at 0800, For 1 dose, Reconstitute each 125 mg vial with 2 mL sterile water for injection to a concentration of 62.5 mg/mL.Indications:MS (multiple sclerosis) (CMS/HCC V24, CMS/HCC V28) Given 02/01/2025 8:27 AM EDT 125 mg ocrelizumab (OCREVUS) 300 mg in sodium chloride 0.9 % 260 mL IVPB 300 mg, intravenous, Once, On Charisse 02/01/25 at 0830, For 1 dose, Begin infusion at 30 mL/hour; increase by 30 mL/hour every 30 minutes to a maximum rate of 180 mL/hour. Infusion duration is 2.5 hours or longer. Administer though a dedicated IV line using a 0.2 or 0.22 micron in-line filter.Indications:MS (multiple sclerosis) (CMS/HCC V24, CMS/HCC V28) New Bag 02/01/2025 8:54 AM EDT 300 mg sodium chloride 0.9 % bolus 500 mL 500 mL, intravenous, at 1,000 mL/hr, Administer over 0.5 Hours, Once, On Charisse 02/01/25 at 0800, For 1 dose New Bag 02/01/2025 7:55 AM EDT 500 mL 1000 mL/hr documented in this encounter Orders Nursing Count Last Ordered Date First Orde red Date ONC NURSING COMMUNICATION 1 02/01/2025 ONC NURSING COMMUNICATION 10 1 02/01/2025 ONC NURSING COMMUNICATION 2 1 02/01/2025 ONC NURSING COMMUNICATION 7 1 02/01/2025 TREATMENT CONDITIONS 1 02/01/2025 documented in this encounter Care Teams Aligning Checker Relationship Specialty Start Date End Date Zeb Paz MD [address] [place] [address] PCP - General Internal Medicine 12/08/24 documented as of this encounter
--- OUTSIDE RECORDS SUMMARY | 2025-02-05 10:58 | XMS_ITS | Clinical Summary ---
Author Organization [facility] Address [address] [place] [address] Phone Care Team Providers Care Hat Brim Curler Name Role Phone Zeb Paz MD Primary Care Provider [phone] Allergies No known active allergies Medications dimethyl fumarate 240 mg capsule,delayed release(DR/EC) 12/05/2024 Acti ve ergocalciferol (VITAMIN D-2) 1,250 mcg (50,000 unit) capsule Take 1 capsule (50,000 Units total) by mouth 1 (one) time per week. 4 each 11 01/05/2025 Active Active Problems Problem Noted Date Diagnosed Date MS (multiple sclerosis) ([facility] V24, [facility] V2 8) 01/19/2025 Encounters Date Type Department Care Team Description 02/01/2025 7:35 AM EDT - 02/01/2025 11:59 PM EDT Hospital Encounter [facility] [address] [phone] MS (multiple sclerosis) ([facility] V24, [facility] V28) (Primary Dx) Discharge Disposition: Home or Self Care 01/30/2025 10:00 AM EDT Office Visit [address] [phone] Livier Sanchez MD Multiple sclerosis ([facility] V24, [facility] V28) (Primary Dx); Gait abnormality; High risk medication use; Ataxia 01/09/2025 Telephone [facility] [place] [facility] [address] [phone] Livier Sanchez MD OCREVUS AUTH RQST; AUTH NOT REQRD 01/05/2025 8:30 AM EDT Office Visit [address] [phone] Livier Sanchez MD Multiple sclerosis ([facility]/HCC V24, [facility] V28) (Primary Dx); Gait abnormality; High risk medication use 12/08/2024 8:00 AM EST Consult [address] [phone] Livier Sanchez MD Multiple sclerosis (CMS/HCC V24, [facility] V28) (Primary Dx); Gait abnormality; Ataxia 12/08/[address] [phone] Livier Sanchez MD PATIENT INFORMATION from Last 3 Months Social History Tobacco Use Types Packs/Day Years Used Date Smoking Tobacco: Never Assessed Sex and Gender Information Value Date Recorded Sex Assigned at Not on file Legal Sex Male 4:18 PM EST Gender Identity Not on file Sexual Orientation Not on file Last Filed Vital Signs Vital Sign Reading Time Taken Comments Blood Pressure 138/97 02/01/2025 11:42 AM EDT Pulse 106 02/01/2025 11:42 AM EDT Temperature 36.2 ??C (97.1 ??F) 02/01/2025 11:42 AM E DT Respiratory Rate 18 02/01/2025 11:42 AM EDT Oxygen Saturation 98% 02/01/2025 11:42 AM EDT Inhaled Oxygen Concentration - - Weight 71.2 kg (157 lb) 01/30/2025 9:54 AM EDT Height 180.3 cm (5' 11 ) 01/30/2025 9:54 AM EDT Body Mass Index 21.9 01/30/2025 9:54 AM EDT Plan of Treatment Upcoming Encounters Date Type Department Care Team (Late st Contact Info) Description 02/15/2025 8:30 AM EDT Appointment [facility] Outpatient [facility] - [place] [address] [facility] [address] [place] [phone] 04/10/2025 8:30 AM EDT Office Visit [facility] [place] [address] [facility] [address] [place] [phone] Livier Sanchez MD 175 [facility] [address] [place] [phone] Health Maintenance Due Date Last Done Comments DTaP,Tdap,and Td Vaccines (1 - Tdap) 1995 Hepatitis B Vaccines (1 of 3 - 19+ 3-dose series) 1995 COVID-19 Vaccine ( - 2023-2 5 season) 2024 Cholesterol Screening (Lipid Panel) 09/07/2024 Colorectal Cancer Screening: Colonoscopy 09/07/2024 Depression Screening 09/07/2024 Social Influencers of Health Screening 09/07/2024 Influenza Vaccine (Season Ended) 2025 HIV Screening Completed 12/08/2024 Hepatitis C Screening Completed 12/08/2024 HIB Vaccines Aged Out No longer eligi ble based on patient's age to complete this topic HPV Vaccines Aged Out No longer eligi ble based on patient's age to complete this topic Hepatitis A Vaccines Aged Out No long er eligible based on patient's age to complete this topic IPV Vaccines Aged Out No longer eligi ble based on patient's age to complete this topic MMR Vaccines Aged Out No longer eligi ble based on patient's age to complete this topic Meningococcal ACWY Vaccine Aged Out N o longer eligible based on patient's age to complete this topic Meningococcal B Vaccine Aged Out No l onger eligible based on patient's age to complete this topic Pneumococcal Vaccine: Pediat rics (0 to 5 Years) and At-Risk Patients (6 to 64 Years) Aged Out No longer eligi ble based on patient's age to complete this topic RSV Immunization Patients Un kathryn 20 months Aged Out No longer eligible b ased on patient's age to complete this topic Varicella Vaccines Aged Out No longer eligible based on patient's age to complete this topic Procedures Procedure Name Priority Date/Time Associated Diagnosis Comments NEUROMYELITIS OPTICA, [id number] Routine 12/08/2024 9:18 AM EST Multiple sclerosis (CMS/HCC V24, CMS/HCC V28) INTERFERON GAMMA INTERPRETATION Routine 12/08/2024 9:18 AM EST Multiple sclerosis (CMS/HCC V24, CMS/HCC V28) INTERFERON GAMMA ANTIGEN 2 Routine 12/08/2024 9:18 AM EST Multiple sclerosis (CMS/HCC V24, CMS/HCC V28) INTERFERON GAMMA ANTIGEN 1 Routine 12/08/2024 9:18 AM EST Multiple sclerosis (CMS/HCC V24, CMS/HCC V28) INTERFERON GAMMA MITOGEN Routine 12/08/2024 9:18 AM EST Multiple sclerosis (CMS/HCC V24, CMS/HCC V28) INTERFERON GAMMA NIL Routine 12/08/2024 9:18 AM EST Multiple sclerosis (CMS/HCC V24, CMS/HCC V28) CBC WITH AUTO DIFFERENTIAL Routine 12/08/2024 9:18 AM EST Multiple sclerosis (CMS/HCC V24, CMS/HCC V28) INTERFERON GAMMA FOR TB, QUALITATIVE Routine 12/08/2024 9:18 AM EST Multiple sclerosis (CMS/HCC V24, CMS/HCC V28) HIV 1, 2 ANTIBODY, P24 ANTIGEN WITH REFLEX TO DIFFERENTIATION Routine 12/08/2024 9:18 AM EST Multiple sclerosis (CMS/HCC V24, CMS/HCC V28) JCV POLYOMA VIRUS ANTIBODY WITH REFLEX TO INHIBITION ASSAY Routine 12/08/2024 9:18 AM EST Multiple sclerosis (CMS/HCC V24, CMS/HCC V28) HEPATITIS B CORE ANTIBODY IGM Routine 12/08/2024 9:18 AM EST Multiple sclerosis (CMS/HCC V24, CMS/HCC V28) HEPATITIS B SURFACE ANTIGEN WITH CONFIRMATION Routine 12/08/2024 9:18 AM EST Multiple sclerosis (CMS/HCC V24, CMS/HCC V28) HEPATITIS C ANTIBODY Routine 12/08/2024 9:18 AM EST Multiple sclerosis (CMS/HCC V24, CMS/HCC V28) HEPATIC FUNCTION PANEL Routine 9:18 AM EST Multiple sclerosis (CMS/HCC V24, CMS/HCC V28) IMMUNOGLOBULIN IGM Routine 12/08/2024 9: 18 AM EST Multiple sclerosis (CMS/HCC V24, CMS/HCC V28) IMMUNOGLOBULIN IGG Routine 12/08/2024 9: 18 AM EST Multiple sclerosis (CMS/HCC V24, CMS/HCC V28) IMMUNOGLOBULIN IGA Routine 12/08/2024 9: 18 AM EST Multiple sclerosis (CMS/HCC V24, CMS/HCC V28) VARICELLA ZOSTER ANTIBODY IGG Routine 12/08/2024 9:18 AM EST Multiple sclerosis (CMS/HCC V24, CMS/HCC V28) MYELIN OLIGODENDROCYTE GLYCOPROTEIN ANTIBODY WITH REFLEX TO TITER Routine 12/08/2024 9:18 AM EST Multiple sclerosis (CMS/HCC V24, CMS/HCC V28) BORRELIA BURGDORFERI ANTIBODY Routine 12/08/2024 9:18 AM EST Multiple sclerosis (CMS/HCC V24, CMS/HCC V28) BUN Routine 12/08/2024 9:18 AM EST Multiple sclerosis (CMS/HCC V24, CMS/HCC V28) CBC AND DIFFERENTIAL Routine 12/08/2024 9:18 AM EST Multiple sclerosis (CMS/HCC V24, CMS/HCC V28) CREATININE, SERUM Routine 12/08/2024 9:1 8 AM EST Multiple sclerosis (CMS/HCC V24, CMS/HCC V28) VITAMIN D 25 HYDROXY Routine 12/08/2024 9:18 AM EST Multiple sclerosis (CMS/HCC V24, CMS/HCC V28) VITAMIN B12 Routine 12/08/2024 9:18 AM EST Multiple sclerosis (CMS/HCC V24, CMS/HCC V28) from Last 3 Months Results * Hepatitis C antibody (12/08/2024 9:18 AM EST) Hepatitis C Antibody Negative Negative LAB CHEMISTRY METHOD 12/08/2024 2:51 PM EST [facility] Blood Venous blood specimen / Unknown Venipuncture / Unknown 12/08/2024 9:18 AM EST 12/08/2024 9:18 AM EST us Livier Sanchez MD LAB BLOOD ORDERABLES Fin al Result Performing Organization Address [facility] Co de Phone Number [facility] [address] [place] [address], * HIV 1,2 antibody, p24 antigen with reflex to differentiation (12/08/2024 9:18 AM EST) HIV Combo AB/AG Negative Negative LAB CHEMISTRY METHOD 12/08/2024 2:52 PM EST [facility] Blood Venous blood specimen / Unknown Venipuncture / Unknown 12/08/2024 9:18 AM EST 12/08/2024 9:18 AM EST Narrative [facility] - 12/08/2024 2:52 PM EST This assay is a 4th generation assay allowing for earlier detection of HIV infection by detecting the presence of the HIV-1 p24 antigen as well as the traditional antibodies to HIV type 1 (including group O) and type 2. ??Use of a 4th generation assay is the current CDC recommendation for HIV screening. us Livier Sanchez MD LAB BLOOD ORDERABLES Fin al Result Performing Organization Address [facility]/ZIP Co de Phone Number [facility] [address] [place] [address], [place] [phone] * Interferon gamma interpretation (12/08/2024 9:18 AM EST) [facility] Quantiferon Plus Interpretation Negative Negative LAB CHEMISTRY METHOD 12/09/2024 9:59 AM EST [facility] Blood Venous blood specimen / Unknown Venipuncture / Unknown 12/08/2024 9:18 AM EST 12/08/2024 9:18 AM EST us Livier Sanchez MD LAB BLOOD ORDERABLES Fin al Result [facility] [address] [place] [address], [place] [phone] * Interferon gamma antigen 2 (12/08/2024 9:18 AM EST) Blood Venous blood specimen / Unknown Venipuncture / Unknown 12/08/2024 9:18 AM EST 12/08/2024 9:18 AM EST us Livier Sanchez MD LAB BLOOD ORDERABLES Fin al Result [facility] [address] [place] [address], [place] [phone] * Inteferon gamma antigen 1 (12/08/2024 9:18 AM EST) Blood Venous blood specimen / Unknown Venipuncture / Unknown 12/08/2024 9:18 AM EST 12/08/2024 9:18 AM EST us Livier Sanchez MD LAB BLOOD ORDERABLES Fin al Result Performing Organization Address City/[facility]/ZIP Co de Phone Number [facility] [address] [place] [address], [place] [phone] * Interferon gamma mitogen (12/08/2024 9:18 AM EST) Blood Venous blood specimen / Unknown Venipuncture / Unknown 12/08/2024 9:18 AM EST 12/08/2024 9:18 AM EST us Livier Sanchez MD LAB BLOOD ORDERABLES Fin al Result Performing Organization Address [facility] Co de Phone Number [facility] [address] [place] [address], * Interferon gamma NIL (12/08/2024 9:18 AM EST) Blood Venous blood specimen / Unknown Venipuncture / Unknown 12/08/2024 9:18 AM EST 12/08/2024 9:18 AM EST us Livier Sanchez MD LAB BLOOD ORDERABLES Fin al Result Performing Organization Address [facility] Phone Number [facility] [address] [place] [address], * Hepatitis B surface antigen with reflex to confirmation (12/08/2024 9:18 AM EST) Hepatitis B Surface Ag Negative Negative LAB CHEMISTRY METHOD 12/08/2024 2:23 PM EST [facility] Blood Venous blood specimen / Unknown Venipuncture / Unknown 12/08/2024 9:18 AM EST 12/08/2024 9:18 AM EST Narrative [facility] - 12/08/2024 2:23 PM EST Over the counter supplements containing high doses of biotin may interfere with this assay. ??If interference is suspected, patients shoud be retested after refraining from biotin supplements for 72 hours. us Livier Sanchez MD LAB BLOOD ORDERABLES Fin al Result Performing Organization Address [facility] Co de Phone Number [facility] [address] [place] [address], [place] [phone] * Myelin oligodendrocyte glycoprotein antibody with reflex to titer (12/08/2024 9:18 AM EST) Pathologist [facility] MOG Antibody, Cell-based IFA Negative Negative 12/11/2024 4:05 PM EST [facility] Blood Venous blood specimen / Unknown Venipuncture / Unknown 12/08/2024 9:18 AM EST 12/08/2024 9:18 AM EST Narrative [facility] - 12/11/2024 4:05 PM EST Test(s) [id number] Antibody, Cell-based IFA was developed and its performance characteristics determined by [facility]. It has not been cleared or approved by the Food and Drug Administration. Performed at: ??01 - [facility] ??[id number] Testing Director: Naomy Jeffrey MD, Phone: ??[phone] Livier Sanchez MD LAB BLOOD ORDERABLES Fin al Result Performing Organization Address City/State/[facility] Co de Phone Number [facility] * (ABNORMAL) JCV polyoma virus antibody with reflex to inhibition assay (12/08/2024 9:18 AM EST) Pathologist [facility] Index Value 0.82 12/15/2024 1:05 PM EST [facility] JCV Antibody Positive( A) 12/15/2024 1:05 PM EST [facility] Comment: Index interpretive criteria: ? <0.20 negative ? 0.20-0.40 indeterminate ? >0.40 positive Interpretation Note 12/15/2024 1:05 PM EST [facility] Comment: INTERPRETATION Negative: Antibodies to JCV not detected. Indeterminate: Low level reactivity detected, see Inhibition Assay result below for the final antibody result. Positive: Antibodies to TANVI virus (JCV) detected indicating the patient has been exposed to JCV at an undetermined time. The STRATIFY JCV(R) DxSelect(TM) Antibody Test is an enzyme-linked immunosorbent assay (ALEYDA) designed to detect JCV antibodies to help identify individuals who have been exposed to the virus. Samples with low level reactivity in the detection assay are retested in a confirmation (inhibition) assay to confirm presence or absense of JCV-specific antibodies. Retrospective analyses of post marketing data from various sources, including observational studies and spontaneous reports obtained worldwide, suggest that the risk of developing PML may be associated with relative levels of serum anti-JCV antibody as measured by anti-JCV antibody index. (1) (1) TYSABRI(natalizumab)US Prescribing Information Interpretation Note 12/15/2024 1:05 PM EST [facility] Comment: Positive: Antibodies to TANVI virus (JCV) detected ?indicating the patient has been exposed ?to JCV at an undetermined time Negative: Antibodies to JCV not detected Blood Venous blood specimen / Unknown Venipuncture / Unknown 12/08/2024 9:18 AM EST 12/08/2024 9:18 AM EST Narrative [facility] - 12/15/2024 1:05 PM EST Performed at: ??01 - [facility] [address] [place] ??[id number] Testing Director: Vivian Child MD, Phone: ??[phone] Livier Sanchez MD LAB BLOOD ORDERABLES Fin al Result [facility] * Neuromyelitis optica, [id number] (12/08/2024 9:18 AM EST) NMO IgG Autoantibodies <1.5 0.0 - 3.0 U/mL 12/13/2024 12:05 PM EST [facility] Comment: ? Negative: ?0.0 - 3.0 ? Positive: ? >3.0 Blood Venous blood specimen / Unknown Venipuncture / Unknown 12/08/2024 9:18 AM EST 12/08/2024 2:04 PM EST Narrative [facility] - 12/13/2024 12:05 PM EST Performed at: ??01 - [facility] [address] ??[id number] Testing Director: Naomy Jeffrey MD, Phone: ??[phone] Livier Sanchez MD LAB BLOOD ORDERABLES Fin al Result [facility] * (ABNORMAL) CBC auto differential (12/08/2024 9:18 AM EST) WBC 10.8 4.8 - 10.8 K/mcL LAB HEMETOLOGY METHOD 12/08/2024 10:18 AM [facility] RBC 5.20 4.50 - 5.50 M/mcL LAB HEMETOLOGY METHOD 12/08/2024 10:18 AM [facility] Hemoglobin 16.1 13.5 - 17.5 g/dL LAB HEMETOLOGY METHOD 12/08/2024 10:18 AM [facility] Hematocrit 48.4 42.0 - 54.0 % LAB HEMETOLOGY METHOD 12/08/2024 10:18 AM [facility] MCV 92.4 79.0 - 98.0 FL LAB HEMETOLOGY METHOD 12/08/2024 10:18 AM [facility] MCH 30.7 27.0 - 32.0 pcg LAB HEMETOLOGY METHOD 12/08/2024 10:18 AM [facility] MCHC 33.3 32.0 - 37.0 g/dL LAB HEMETOLOGY METHOD 12/08/2024 10:18 AM [facility] RDW 13.2 11.0 - 15.0 % LAB HEMETOLOGY METHOD 12/08/2024 10:18 AM [facility] Platelets 256 130 - 400 K/mcL LAB HEMETOLOGY METHOD 12/08/2024 10:18 AM [facility] MPV 11.2(H) 7.0 - 11.0 FL LAB HEMETOLOGY METHOD 12/08/2024 10:18 AM [facility] NRBC 0.0 <1.0 % LAB HEMETOLOGY METHOD 12/08/2024 10:18 AM [facility] NRBC Absolute 0.00 <0.10 K/mcL LAB HEMETOLOGY METHOD 12/08/2024 10:18 AM [facility] Neutrophils Relative 79.4 % LAB HEMETOLOGY METHOD 12/08/2024 10:18 AM [facility] Lymphocytes Relative 12.4 % LAB HEMETOLOGY METHOD 12/08/2024 10:18 AM [facility] Monocytes Relative 5.8 % LAB HEMETOLOGY METHOD 12/08/2024 10:18 AM [facility] Eosinophils Relative 1.7 % LAB HEMETOLOGY METHOD 12/08/2024 10:18 AM [facility] Basophils Relative 0.3 % LAB HEMETOLOGY METHOD 12/08/2024 10:18 AM [facility] Immature Granulocytes Relative 0.4 % LAB HEMETOLOGY METHOD 12/08/2024 10:18 AM [facility] Neutrophils Absolute 8.56(H) 1.50 - 7.00 K/mcL LAB HEMETOLOGY METHOD 12/08/2024 10:18 AM [facility] Lymphocytes Absolute 1.33 1.00 - 5.00 K/mcL LAB HEMETOLOGY METHOD 12/08/2024 10:18 AM [facility] Monocytes Absolute 0.62 0.20 - 1.00 K/mcL LAB HEMETOLOGY METHOD 12/08/2024 10:18 AM [facility] Eosinophils Absolute 0.18 0.00 - 0.50 K/mcL LAB HEMETOLOGY METHOD 12/08/2024 10:18 AM EST [facility] Basophils Absolute 0.03 0.00 - 0.20 K/[facility] LAB HEMETOLOGY METHOD 12/08/2024 10:18 AM EST [facility] Immature Granulocytes Absolute 0.04(H) 0.00 - 0.03 K/[facility] LAB HEMETOLOGY METHOD 12/08/2024 10:18 AM EST [facility] Blood Venous blood specimen / Unknown Venipuncture / Unknown 12/08/2024 9:18 AM EST 12/08/2024 9:18 AM EST us Livier Sanchez MD LAB BLOOD ORDERABLES Fin al Result Performing Organization Address [facility] de Phone Number [facility] [address] [place] [address], [place] [phone] * Borrelia burgdorferi antibody (12/08/2024 9:18 AM EST) [facility] Lyme Ab Negative Negative LAB CHEMISTRY METHOD 12/08/2024 2:29 PM EST [facility] Comment: No laboratory evidence of infection with B. burgdorferi (Lyme disease). Negative results may occur in patients recently infected (<=14 days) with B. burgdorferi. ??If recent infection is suspected, repeat testing on a new sample collected in 7-14 days is recommended. Blood Venous blood specimen / Unknown Venipuncture / Unknown 12/08/2024 9:18 AM EST 12/08/2024 9:18 AM EST us Livier Sanchez MD LAB BLOOD ORDERABLES Fin al Result Performing Organization Address [facility]/ZIP Co de Phone Number [facility] [address] [place] [address], [place] [phone] * Hepatitis B core antibody IgM (12/08/2024 9:18 AM EST) Pathologist [facility] Hep B Core IgM Negative Negative LAB CHEMISTRY METHOD 12/08/2024 2:51 PM EST [facility] Blood Venous blood specimen / Unknown Venipuncture / Unknown 12/08/2024 9:18 AM EST 12/08/2024 9:18 AM EST Narrative [facility] - 12/08/2024 2:51 PM EST Over the counter supplements containing high doses of biotin may interfere with this assay. ??If interference is suspected, patients shoud be retested after refraining from biotin supplements for 72 hours. us Livier Sanchez MD LAB BLOOD ORDERABLES Fin al Result [facility] [address] [place] [address], [place] [phone] * Creatinine (12/08/2024 9:18 AM EST) Creatinine 1.19 0.70 - 1.30 mg/dL LAB CHEMISTRY METHOD 12/08/2024 2:44 PM EST [facility] eGFR 75 >=60 mL/min/1. 73m2 LAB CHEMISTRY METHOD 12/08/2024 2:44 PM EST [facility] Comment:Calculation based on the??Chronic Kidney Disease Epidemiology Collaboration (CKD-EPI) equation refit??without adjustment for race. Blood Venous blood specimen / Unknown Venipuncture / Unknown 12/08/2024 9:18 AM EST 12/08/2024 9:18 AM EST us Livier Sanchez MD LAB BLOOD ORDERABLES Fin al Result [facility] [address] [place] [address], [place] [phone] * (ABNORMAL) Vitamin D 25 hydroxy (12/08/2024 9:18 AM EST) Vit D, 25-Hydroxy 27.6(L) 30.0 - 80.0 ng/mL LAB CHEMISTRY METHOD 12/08/2024 2:12 PM EST [facility] Blood Venous blood specimen / Unknown Venipuncture / Unknown 12/08/2024 9:18 AM EST 12/08/2024 9:18 AM EST us Livier Sanchez MD LAB BLOOD ORDERABLES Fin al Result Performing Organization Address [facility] de Phone Number [facility] [address] [place] [address], [place] [phone] * Varicella zoster antibody IgG (12/08/2024 9:18 AM EST) Varicella IgG Positive Positive LAB CHEMISTRY METHOD 12/08/2024 2:19 PM EST [facility] Varicella Zoster IgG 6.06 >=1.00 S/CO LAB CHEMISTRY METHOD 12/08/2024 2:19 PM EST [facility] Blood Venous blood specimen / Unknown Venipuncture / Unknown 12/08/2024 9:18 AM EST 12/08/2024 9:18 AM EST Narrative [facility] - 12/08/2024 2:19 PM EST Interpretation >= 1.00 S/CO is considered to be consistent with Immunity us Livier Sanchez MD LAB BLOOD ORDERABLES Fin al Result Performing Organization Address [facility] de Phone Number [facility] [address] [place] [address], [place] [phone] * BUN (12/08/2024 9:18 AM EST) BUN 7 5 - 25 mg/dL LAB CHEMISTRY METHOD 12/08/2024 2:44 PM EST [facility] Blood Venous blood specimen / Unknown Venipuncture / Unknown 12/08/2024 9:18 AM EST 12/08/2024 9:18 AM EST us Livier Sanchez MD LAB BLOOD ORDERABLES Fin al Result Performing Organization Address [facility]/ZIP Co de Phone Number [facility] [address] [place] [address], [place] [phone] * Immunoglobulin IgA (12/08/2024 9:18 AM EST) IgA 315 61 - 348 mg/dL LAB CHEMISTRY METHOD 12/08/2024 2:44 PM EST [facility] Blood Venous blood specimen / Unknown Venipuncture / Unknown 12/08/2024 9:18 AM EST 12/08/2024 9:18 AM EST us Livier Sanchez MD LAB BLOOD ORDERABLES Fin al Result Performing Organization Address [facility] Co de Phone Number [facility] [address] [place] [address], [place] [phone] * Immunoglobulin IgM (12/08/2024 9:18 AM EST) Pathologist [facility] IgM 111 23 - 259 mg/dL LAB CHEMISTRY METHOD 12/08/2024 2:44 PM EST [facility] Blood Venous blood specimen / Unknown Venipuncture / Unknown 12/08/2024 9:18 AM EST 12/08/2024 9:18 AM EST us Livier Sanchez MD LAB BLOOD ORDERABLES Fin al Result Performing Organization Address City/[facility]/ZIP Co de Phone Number [facility] [address] [place] [address], [place] [phone] * (ABNORMAL) Immunoglobulin IgG (12/08/2024 9:18 AM EST) Total IgG 1,930(H) 549 - 1,584 mg/dL LAB CHEMISTRY METHOD 12/08/2024 2:44 PM EST [facility] Blood Venous blood specimen / Unknown Venipuncture / Unknown 12/08/2024 9:18 AM EST 12/08/2024 9:18 AM EST us Livier Sanchez MD LAB BLOOD ORDERABLES Fin al Result [facility] [address] [place] [address], [place] [phone] * Vitamin B12 (12/08/2024 9:18 AM EST) Pathologist [facility] Vitamin B-12 537 250 - 900 pcg/mL LAB CHEMISTRY METHOD 12/08/2024 2:44 PM [facility] Blood Venous blood specimen / Unknown Venipuncture / Unknown 12/08/2024 9:18 AM EST 12/08/2024 9:18 AM EST Livier Sanchez MD LAB BLOOD ORDERABLES Fin al Result [facility] [address] [place] [address], [place] [phone] * (ABNORMAL) Hepatic function panel (12/08/2024 9:18 AM EST) Pathologist [facility] Total Protein 8.1(H) 6.0 - 8.0 g/dL LAB CHEMISTRY METHOD 12/08/2024 2:44 PM [facility] Albumin 4.1 3.2 - 5.0 g/dL LAB CHEMISTRY METHOD 12/08/2024 2:44 PM [facility] Total Bilirubin 1.0 0.0 - 1.4 mg/dL LAB CHEMISTRY METHOD 12/08/2024 2:44 PM [facility] Bilirubin, Direct 0.2 0.0 - 0.3 mg/dL LAB CHEMISTRY METHOD 12/08/2024 2:44 PM EST [facility] Bilirubin, Indirect 0.8 0.0 - 1.1 mg/dL LAB CHEMISTRY METHOD 12/08/2024 2:44 PM EST [facility] ALT (SGPT) 28 10 - 60 unit/L LAB CHEMISTRY METHOD 12/08/2024 2:44 PM EST [facility] AST (SGOT) 21 10 - 42 unit/L LAB CHEMISTRY METHOD 12/08/2024 2:44 PM EST [facility] Alkaline Phosphatase 81 42 - 121 unit/L LAB CHEMISTRY METHOD 12/08/2024 2:44 PM EST [facility] Blood Venous blood specimen / Unknown Venipuncture / Unknown 12/08/2024 9:18 AM EST 12/08/2024 9:18 AM EST Livier Sanchez MD LAB BLOOD ORDERABLES Fin al Result [facility] [address] [place] [address], [place] [phone] from Last 3 Months Insurance [facility] [employer] Care Teams Hat Brim Curler Relationship Specialty Start Date End Date Zeb Paz MD [address] [place] [phone] PCP - General Internal Medicine 12/08/24
== END 2025-02-05 10:28 | disposition home or self-care (01) ==
LOC: HO.HMCH 09:47
PROVIDERS: PCP Internal Medicine; Visit Provider Internal Medicine
DX: G35 Multiple sclerosis (principal); L21.9 Seborrheic dermatitis, unspecified; R03.0 Elevated blood-pressure reading, without diagnosis of hypertension

== ENCOUNTER 2025-03-06 09:55 | Outpatient (REF) | payer OTHER, SELFPAY ==
--- OUTSIDE RECORDS SUMMARY | 2025-03-06 10:47 | XMS_ITS | Clinical Summary ---
Author Organization [facility] Address [address] [place] [address] Phone Care Team Providers Care Cosmetic Consultant Name Role Phone Zeb Paz MD Primary Care Provider [phone] Allergies No known active allergies Medications dimethyl fumarate 240 mg capsule,delayed release(DR/EC) 12/05/2024 Acti ve ergocalciferol (VITAMIN D-2) 1,250 mcg (50,000 unit) capsule Take 1 capsule (50,000 Units total) by mouth 1 (one) time per week. 4 each 11 01/05/2025 6 Active Active Problems Problem Noted Date Diagnosed Date MS (multiple sclerosis) ([facility] V24, CMS/[facility] V2 8) 01/19/2025 Encounters Date Type Department Care Team Description 02/15/2025 8:16 AM EDT - 02/15/2025 11:59 PM EDT Hospital Encounter [facility] MS Outpatient Rehabilititation [facility] [address] [phone] MS (multiple sclerosis) (CMS/HCC V24, CMS/HCC V28) (Primary Dx) Discharge Disposition: Home or Self Care 02/01/2025 7:35 AM EDT - 02/01/2025 11:59 PM EDT Hospital Encounter [facility] MS Outpatient Rehabilititation [facility] [address] [phone] MS (multiple sclerosis) (CMS/HCC V24, CMS/HCC V28) (Primary Dx) Discharge Disposition: Home or Self Care 01/30/2025 10:00 AM EDT Office Visit [address] [phone] Livier Sanchez MD Multiple sclerosis (CMS/HCC V24, CMS/HCC V28) (Primary Dx); Gait abnormality; High risk medication use; Ataxia 01/09/[address] [facility] Outpatient Rehabilititation [address] [phone] Livier Sanchez MD OCREVUS AUTH RQST; AUTH NOT REQRD 01/05/2025 8:30 AM EDT Office Visit [address] [phone] Livier Sanchez MD Multiple sclerosis (CMS/HCC V24, CMS/[facility] V28) (Primary Dx); Gait abnormality; High risk medication use 12/08/2024 8:00 AM EST Consult [address] [phone] Livier Sanchez MD Multiple sclerosis ([facility]/HCC V24, CMS/[facility] V28) (Primary Dx); Gait abnormality; Ataxia 12/08/[address] [phone] Livier Sanchez MD PATIENT INFORMATION from Last 3 Months Social History Tobacco Use Types Packs/Day Years Used Date Smoking Tobacco: Never Assessed Sex and Gender Information Value Date Recorded Sex Assigned at Not on file Legal Sex Male 4:18 PM EST Gender Identity Not on file Sexual Orientation Not on file Last Filed Vital Signs Vital Sign Reading Time Taken Comments Blood Pressure 114/78 02/15/2025 11:54 AM EDT Pulse 80 02/15/2025 11:54 AM EDT Temperature 36.1 ??C (97 ??F) 02/15/2025 11:54 AM EDT Respiratory Rate 16 02/15/2025 11:54 AM EDT Oxygen Saturation 98% 02/15/2025 11:54 AM EDT Inhaled Oxygen Concentration - - Weight 71.2 kg (157 lb) 01/30/2025 9:54 AM EDT Height 180.3 cm (5' 11 ) 01/30/2025 9:54 AM EDT Body Mass Index 21.9 01/30/2025 9:54 AM EDT Plan of Treatment Upcoming Encounters Date Type Department Care Team (Late st Contact Info) Description 04/10/2025 8:30 AM EDT Office Visit [facility] [place] [address] [place] [phone] Livier Sanchez MD [address] [place] [phone] 08/01/2025 8:00 AM EDT Appointment [facility] Outpatient Rehabilititation - [place] [address] [place] [phone] Health Maintenance Due Date Last Done Comments DTaP,Tdap,and Td Vaccines (1 - Tdap) 1995 Hepatitis B Vaccines (1 of 3 - 19+ 3-dose series) 1995 COVID-19 Vaccine (2023-2 5 season) 2024 Cholesterol Screening (Lipid Panel) 09/07/2024 Depression Screening 09/07/2024 Social Influencers of Health Screening 09/07/2024 Influenza Vaccine (Season Ended) 2025 Colorectal Cancer Screening: FIT-DNA (Cologuard) 02/25/2027 02/26/2024 HIV Screening Completed 12/08/2024 Hepatitis C Screening [...] Priority Date/Time Associated Diagnosis Comments NEUROMYELITIS OPTICA, [id number] Routine 12/08/2024 9:18 AM EST Multiple sclerosis ([facility]/HCC V24, [facility]/HCC V28) INTERFERON GAMMA INTERPRETATION Routine 12/08/2024 9:18 AM EST Multiple sclerosis ([facility] V24, [facility] V28) INTERFERON GAMMA ANTIGEN 2 Routine 12/08/2024 9:18 AM EST Multiple sclerosis ([facility]/HCC V24, [facility]/HCC V28) INTERFERON GAMMA ANTIGEN 1 Routine 12/08/2024 9:18 AM EST Multiple sclerosis ([facility]/HCC V24, CMS/HCC V28) INTERFERON GAMMA MITOGEN Routine 12/08/2024 9:18 AM EST Multiple sclerosis ([facility]/HCC V24, CMS/HCC V28) INTERFERON GAMMA NIL Routine 12/08/2024 9:18 AM EST Multiple sclerosis ([facility]/HCC V24, CMS/HCC V28) CBC WITH AUTO DIFFERENTIAL Routine 12/08/2024 9:18 AM EST Multiple sclerosis ([facility]/HCC V24, CMS/HCC V28) INTERFERON GAMMA FOR TB, QUALITATIVE Routine 12/08/2024 9:18 AM EST Multiple sclerosis ([facility]/HCC V24, CMS/HCC V28) HIV 1, 2 ANTIBODY, P24 ANTIGEN WITH REFLEX TO DIFFERENTIATION Routine 12/08/2024 9:18 AM EST Multiple sclerosis ([facility] V24, CMS/HCC V28) JCV POLYOMA VIRUS ANTIBODY [...] Hepatitis C antibody (12/08/2024 9:18 AM EST) Pathologist [facility] Hepatitis C Antibody Negative Negative LAB CHEMISTRY METHOD 12/08/2024 2:[address] [facility] Blood Venous blood specimen / Unknown Venipuncture / Unknown 12/08/2024 9:18 AM EST 12/08/2024 9:18 AM EST Lviier Sanchez MD LAB BLOOD ORDERABLES Fin al Result [facility] [address] [place] [address], * HIV 1,2 antibody, p24 antigen with reflex to differentiation (12/08/2024 9:18 AM EST) Pathologist [facility] HIV Combo AB/AG Negative Negative LAB CHEMISTRY METHOD 12/08/2024 2:[address] [facility] Blood Venous blood specimen / Unknown Venipuncture / Unknown 12/08/2024 9:18 AM EST 12/08/2024 9:[address] [facility] - 12/08/2024 2:52 PM EST This [...] ORDERABLES Fin al Result Performing Organization Address City/[facility] Co de Phone Number [facility] [address] [place] [address], * Interferon gamma interpretation (12/08/2024 9:18 AM EST) [facility] Quantiferon Plus Interpretation Negative Negative LAB CHEMISTRY METHOD 12/09/2024 9:[address] [facility] Blood Venous blood specimen / Unknown Venipuncture / Unknown 12/08/2024 9:18 AM EST 12/08/2024 9:18 AM EST us Livier Sanchez MD LAB BLOOD ORDERABLES Fin al Result Performing Organization Address [facility] Co de Phone Number [facility] [address] [place] [address], * Interferon gamma antigen 2 (12/08/2024 9:18 AM EST) Blood Venous blood specimen / Unknown Venipuncture / Unknown 12/08/2024 9:18 AM EST 12/08/2024 9:18 AM EST us Livier Sanchez MD LAB BLOOD ORDERABLES Fin al Result Performing Organization Address [facility] Co de Phone Number [facility] [address] [place] [address], * Inteferon gamma antigen 1 (12/08/2024 9:18 AM EST) Blood Venous blood specimen / Unknown Venipuncture / Unknown 12/08/2024 9:18 AM EST 12/08/2024 9:18 AM EST us Livier Sanchez MD LAB BLOOD ORDERABLES Fin al Result Performing Organization Address City/[facility]/ZIP Co de Phone Number [facility] [address] [place] [address], * Interferon gamma mitogen (12/08/2024 9:18 AM EST) Blood Venous blood specimen / Unknown Venipuncture / Unknown 12/08/2024 9:18 AM EST 12/08/2024 9:18 AM EST us Livier Sanchez MD LAB BLOOD ORDERABLES Fin al Result Performing Organization Address [facility] Co de Phone Number [facility] [address] [place] [address], [place] [phone] * Interferon gamma NIL (12/08/2024 9:18 AM EST) Blood Venous blood specimen / Unknown Venipuncture / Unknown 12/08/2024 9:18 AM EST 12/08/2024 9:18 AM EST us Livier Sanchez MD LAB BLOOD ORDERABLES Fin al Result Performing Organization Address [facility] Co de Phone Number [facility] [address] [place] [address], [place] [phone] * Hepatitis B surface antigen with reflex to confirmation (12/08/2024 9:18 AM EST) Hepatitis B Surface Ag Negative Negative LAB CHEMISTRY METHOD 12/08/2024 2:[address] [facility] Blood Venous blood specimen / Unknown Venipuncture / Unknown 12/08/2024 9:18 AM EST 12/08/2024 9:[address] [facility] - 12/08/2024 2:23 PM EST Over the counter supplements containing high doses of biotin may interfere with this assay. ??If interference is suspected, patients shoud be retested after refraining from biotin supplements for 72 hours. Livier Sanchez MD LAB BLOOD ORDERABLES Fin al Result [facility] [address] [place] [address], [place] [phone] * Myelin oligodendrocyte glycoprotein antibody with reflex to titer (12/08/2024 9:18 AM EST) Pathologist [facility] MOG Antibody, Cell-based IFA Negative Negative 12/11/2024 4:05 PM EST [facility] Blood Venous blood specimen / Unknown Venipuncture / Unknown 12/08/2024 9:18 AM EST 12/08/2024 9:18 AM EST Narrative [facility] - 12/11/2024 4:05 PM EST Test(s) [id number] Antibody, Cell-based IFA was developed and its performance characteristics determined by [facility]. It has not been cleared or approved by the Food and Drug Administration. Performed at: ??01 - [facility] [address] ??[id number] Diesel Service Technician: Naomy Jeffrey MD, Phone: ??[phone] Livier Sanchez MD LAB BLOOD ORDERABLES Fin al Result Performing Organization Address City/[facility] Co de Phone Number [facility] * (ABNORMAL) JCV polyoma virus antibody with reflex to inhibition assay (12/08/2024 9:18 AM EST) [facility] Index Value 0.82 12/15/2024 1:05 PM EST [...] 1:05 PM EST Performed at: ??01 - [email or web address] [address] [place] ??[id number] Diesel Service Technician: Vivian Child MD, Phone: ??[phone] Livier Sanchez MD LAB BLOOD ORDERABLES Fin al Result [facility] * Neuromyelitis optica, [id number] (12/08/2024 9:18 AM EST) NMO IgG Autoantibodies <1.5 0.0 - 3.0 U/mL 12/13/2024 12:05 PM EST [facility] Comment: ? Negative: ?0.0 - 3.0 ? Positive: ? >3.0 Blood Venous blood specimen / Unknown Venipuncture / Unknown 12/08/2024 9:18 AM EST 12/08/2024 2:04 PM EST Narrative [facility] - 12/13/2024 12:05 PM EST Performed at: ??01 - [facility] [address] ??[id number] Diesel Service Technician: Naomy Jeffrey MD, Phone: ??[phone] Livier Sanchez MD LAB BLOOD ORDERABLES Fin al Result Performing Organization Address City/State/[facility] Co de Phone Number [facility] * (ABNORMAL) CBC auto differential (12/08/2024 9:18 AM EST) WBC 10.8 4.8 - 10.8 K/mcL LAB HEMETOLOGY METHOD 12/08/2024 10:18 AM [facility] RBC 5.20 4.50 - 5.50 M/mcL LAB HEMETOLOGY METHOD 12/08/2024 10:18 AM [facility] Hemoglobin 16.1 13.5 - 17.5 g/dL LAB HEMETOLOGY METHOD 12/08/2024 10:18 AM [facility] Hematocrit 48.4 42.0 - 54.0 % LAB HEMETOLOGY METHOD 12/08/2024 10:18 AM [facility] MCV 92.4 79.0 - 98.0 FL LAB HEMETOLOGY METHOD 12/08/2024 10:18 AM [facility] MCH 30.7 27.0 - 32.0 pcg LAB HEMETOLOGY METHOD 12/08/2024 10:18 AM [facility] MCHC 33.3 32.0 - 37.0 g/dL LAB HEMETOLOGY METHOD 12/08/2024 10:18 AM [facility] RDW 13.2 11.0 - 15.0 % LAB HEMETOLOGY METHOD 12/08/2024 10:18 AM [facility] Platelets 256 130 - 400 K/mcL LAB HEMETOLOGY METHOD 12/08/2024 10:18 AM [facility] MPV 11.2(H) 7.0 - 11.0 FL LAB HEMETOLOGY METHOD 12/08/2024 10:18 AM [facility] NRBC 0.0 <1.0 % LAB HEMETOLOGY METHOD 12/08/2024 10:18 AM [facility] NRBC Absolute 0.00 <0.10 K/mcL LAB HEMETOLOGY METHOD 12/08/2024 10:18 AM [facility] Neutrophils Relative 79.4 % LAB HEMETOLOGY METHOD 12/08/2024 10:18 AM [facility] Lymphocytes Relative 12.4 % LAB HEMETOLOGY METHOD 12/08/2024 10:18 AM [facility] Monocytes Relative 5.8 % LAB HEMETOLOGY METHOD 12/08/2024 10:18 AM [facility] Eosinophils Relative 1.7 % LAB HEMETOLOGY METHOD 12/08/2024 10:18 AM [facility] Basophils Relative 0.3 % LAB HEMETOLOGY METHOD 12/08/2024 10:18 AM [facility] Immature Granulocytes Relative 0.4 % LAB HEMETOLOGY METHOD 12/08/2024 10:18 AM [facility] Neutrophils Absolute 8.56(H) 1.50 - 7.00 K/mcL LAB HEMETOLOGY METHOD 12/08/2024 10:18 AM [facility] Lymphocytes Absolute 1.33 1.00 - 5.00 K/mcL LAB HEMETOLOGY METHOD 12/08/2024 10:[address] [facility] Monocytes Absolute 0.62 0.20 - 1.00 K/[facility] LAB HEMETOLOGY METHOD 12/08/2024 10:[address] [facility] Eosinophils Absolute 0.18 0.00 - 0.50 K/[facility] LAB HEMETOLOGY METHOD 12/08/2024 10:[address] [facility] Basophils Absolute 0.03 0.00 - 0.20 K/[facility] LAB HEMETOLOGY METHOD 12/08/2024 10:18 AM EST [facility] Immature Granulocytes Absolute 0.04(H) 0.00 - 0.03 K/[facility] LAB HEMETOLOGY METHOD 12/08/2024 10:[address] [facility] Blood Venous blood specimen / Unknown Venipuncture / Unknown 12/08/2024 9:18 AM EST 12/08/2024 9:18 AM EST us Livier Sanchez MD LAB BLOOD ORDERABLES Fin al Result [facility] [address] [place] [address], * Borrelia burgdorferi antibody (12/08/2024 9:18 AM EST) Lyme Ab Negative Negative LAB CHEMISTRY METHOD 12/08/2024 2:[address] [facility] Comment: No laboratory evidence of infection [...] ORDERABLES Fin al Result Performing Organization Address [facility] Co de Phone Number [facility] [address] [place] [address], * Hepatitis B core antibody IgM (12/08/2024 9:18 AM EST) Pathologist [facility] Hep B Core IgM Negative Negative LAB CHEMISTRY METHOD 12/08/2024 2:[address] [facility] Blood Venous blood specimen / Unknown Venipuncture / Unknown 12/08/2024 9:18 AM EST 12/08/2024 9:[address] [facility] - 12/08/2024 2:51 PM EST Over the counter supplements containing high doses of biotin may interfere with this assay. ??If interference is suspected, patients shoud be retested after refraining from biotin supplements for 72 hours. us Livier Sanchze MD LAB BLOOD ORDERABLES Fin al Result Performing Organization Address [facility] de Phone Number [facility] [address] [place] [address], * Creatinine (12/08/2024 9:18 AM EST) [facility] Creatinine 1.19 0.70 - 1.30 mg/dL LAB CHEMISTRY METHOD 12/08/2024 2:[address] [facility] eGFR 75 >=60 mL/min/1. 73m2 LAB CHEMISTRY METHOD 12/08/2024 2:[address] [facility] Comment:Calculation based on the??Chronic Kidney Disease Epidemiology Collaboration (CKD-EPI) equation refit??without adjustment for race. Blood Venous blood specimen / Unknown Venipuncture / Unknown 12/08/2024 9:18 AM EST 12/08/2024 9:18 AM EST us Livier Sanchez MD LAB BLOOD ORDERABLES Fin al Result Performing Organization Address [facility] de Phone Number [facility] [address] [place] [address], [place] [phone] * (ABNORMAL) Vitamin D 25 hydroxy (12/08/2024 9:18 AM EST) Vit D, 25-Hydroxy 27.6(L) 30.0 - 80.0 ng/mL LAB CHEMISTRY METHOD 12/08/2024 2:[address] [facility] Blood Venous blood specimen / Unknown Venipuncture / Unknown 12/08/2024 9:18 AM EST 12/08/2024 9:18 AM EST us Livier Sanchez MD LAB BLOOD ORDERABLES Fin al Result Performing Organization Address [facility] de Phone Number [facility] [address] [place] [address], * Varicella zoster antibody IgG (12/08/2024 9:18 AM EST) Pathologist [facility] Varicella IgG Positive Positive LAB CHEMISTRY METHOD 12/08/2024 2:[address] [facility] Varicella Zoster IgG 6.06 >=1.00 S/CO LAB CHEMISTRY METHOD 12/08/2024 2:[address] [facility] Blood Venous blood specimen / Unknown Venipuncture / Unknown 12/08/2024 9:18 AM EST 12/08/2024 9:[address] [facility] - 12/08/2024 2:19 PM EST Interpretation >= 1.00 S/CO is considered to be consistent with Immunity us Livier Sanchez MD LAB BLOOD ORDERABLES Fin al Result Performing Organization Address [facility] de Phone Number [facility] [address] [place] [address], * BUN (12/08/2024 9:18 AM EST) BUN 7 5 - 25 mg/dL LAB CHEMISTRY METHOD 12/08/2024 2:[address] [facility] Blood Venous blood specimen / Unknown Venipuncture / Unknown 12/08/2024 9:18 AM EST 12/08/2024 9:18 AM EST us Livier Sanchez MD LAB BLOOD ORDERABLES Fin al Result Performing Organization Address City/[facility]/ZIP Co de Phone Number [facility] [address] [place] [address], [place] [phone] * Immunoglobulin IgA (12/08/2024 9:18 AM EST) IgA 315 61 - 348 mg/dL LAB CHEMISTRY METHOD 12/08/2024 2:[address] [facility] Blood Venous blood specimen / Unknown Venipuncture / Unknown 12/08/2024 9:18 AM EST 12/08/2024 9:18 AM EST us Livier Sanchez MD LAB BLOOD ORDERABLES Fin al Result Performing Organization Address City/[facility]/ZIP Co de Phone Number [facility] [address] [place] [address], [place] [phone] * Immunoglobulin IgM (12/08/2024 9:18 AM EST) IgM 111 23 - 259 mg/dL LAB CHEMISTRY METHOD 12/08/2024 2:[address] [facility] Blood Venous blood specimen / Unknown Venipuncture / Unknown 12/08/2024 9:18 AM EST 12/08/2024 9:18 AM EST us Livier Sanchez MD LAB BLOOD ORDERABLES Fin al Result [facility] [address] [place] [address], * (ABNORMAL) Immunoglobulin IgG (12/08/2024 9:18 AM EST) [facility] Total IgG 1,930(H) 549 - 1,584 mg/dL LAB CHEMISTRY METHOD 12/08/2024 2:[address] [facility] Blood Venous blood specimen / Unknown Venipuncture / Unknown 12/08/2024 9:18 AM EST 12/08/2024 9:18 AM EST us Livier Sanchez MD LAB BLOOD ORDERABLES Fin al Result Performing Organization Address [facility] Co de Phone Number [facility] [address] [place] [address], * Vitamin B12 (12/08/2024 9:18 AM EST) [facility] Vitamin B-12 537 250 - 900 pcg/mL LAB CHEMISTRY METHOD 12/08/2024 2:[address] [facility] Blood Venous blood specimen / Unknown Venipuncture / Unknown 12/08/2024 9:18 AM EST 12/08/2024 9:18 AM EST us Livier Sanchez MD LAB BLOOD ORDERABLES Fin al Result Performing Organization Address City/[facility]/ZIP Co de Phone Number [facility] [address] [place] [address], [place] [phone] * (ABNORMAL) Hepatic function panel (12/08/2024 9:18 AM EST) [facility] Total Protein 8.1(H) 6.0 - 8.0 g/dL LAB CHEMISTRY METHOD 12/08/2024 2:[address] [facility] Albumin 4.1 3.2 - 5.0 g/dL LAB CHEMISTRY METHOD 12/08/2024 2:[address] [facility] Total Bilirubin 1.0 0.0 - 1.4 mg/dL LAB CHEMISTRY METHOD 12/08/2024 2:44 PM [facility] Bilirubin, Direct 0.2 0.0 - 0.3 mg/dL LAB CHEMISTRY METHOD 12/08/2024 2:44 PM [facility] Bilirubin, Indirect 0.8 0.0 - 1.1 mg/dL LAB CHEMISTRY METHOD 12/08/2024 2:44 PM [facility] ALT (SGPT) 28 10 - 60 unit/L LAB CHEMISTRY METHOD 12/08/2024 2:44 PM [facility] AST (SGOT) 21 10 - 42 unit/L LAB CHEMISTRY METHOD 12/08/2024 2:44 PM [facility] Alkaline Phosphatase 81 42 - 121 unit/L LAB CHEMISTRY METHOD 12/08/2024 2:44 PM [facility] Blood Venous blood specimen / Unknown Venipuncture / Unknown 12/08/2024 9:18 AM EST 12/08/2024 9:18 AM EST Livier Sanchez MD LAB BLOOD ORDERABLES Fin al Result [facility] [address] [place] [address], from Last 3 Months Insurance [facility] [facility] Care Teams Cosmetic Consultant Relationship Specialty Start Date End Date Zeb Paz MD [address] [place] [phone] PCP - General Internal Medicine 02/15/25
[2025-03-06 11:38] LABS: Alanine Aminotransferase 23 U/L (0-40); Albumin Level 3.9 g/dL (3.5-5.0); Aspartate Amino Transferase 19 U/L (5-37); Bilirubin Direct 0.2 mg/dL (0.0-0.5); Bilirubin Total 1.1 mg/dL (0.0-1.0); Total Protein 7.2 g/dL (6.5-8.0)
[2025-03-06 11:42] LABS: HBS Num1 1.99 mIU/mL (0-7.99); HBc Num1 0.08 S/CO (0.00-0.79); HBsAGNum1 0.27 S/CO (0.00-0.99); Hepatitis B Core Antibody Nonreactive (Nonreactive); Hepatitis B Surface Antigen Negative (Negative); ~Hepatitis B Surface Antibody NONREACTIVE (Nonreactive); ~Hepatitis C Antibody Nonreactive (Nonreactive)
[2025-03-06 12:37] LABS: Alkaline Phosphatase 61 U/L (39-117)
[2025-03-06 15:39] LABS: PSA,Total (Free>4and<10) 4.13 ng/mL (0.00-4.00)
[2025-03-07 11:19] LABS: Appearance Urine Clear; Color Urine Yellow; Glucose Urine UA Negative (Negative); Leukocyte Esterase Urine Negative (Negative); Nitrite Urine Negative (Negative); PH 6.5 (5.0-9.0); Specific Gravity - Urine 1.015 (1.005-1.025); Urine Blood Negative (Negative); Urine Ketones Negative (Negative); Urine Protein Negative (Neg-Trace)
[2025-03-08 10:59] LABS: Free Prostate Spec Ag 0.5 ng/mL; Percent Free Prostate Spec Ag 14 % (calc) (>25); Prostate Specific Ag Total 3.7 ng/mL (< OR = 4.0)
== END 2025-03-06 09:56 | disposition home or self-care (01) ==
LOC: HO.LAB 09:55
PROVIDERS: PCP Internal Medicine; Visit Provider Internal Medicine
DX: R27.0 Ataxia, unspecified (principal); R30.0 Dysuria; R97.20 Elevated prostate specific antigen [PSA]; R79.89 Other specified abnormal findings of blood chemistry
CPT/HCPCS: 36415; 80076; 81003; 84153; 84154; 86704; 86706; 86803; 87340

== ENCOUNTER 2025-03-21 08:40 | Outpatient (REF) | payer OTHER, SELFPAY ==
--- NOTE | ~2025-03-21 | US_ITS ---
CLINICAL HISTORY: R79.89 - Other specified abnormal findings of blood chemistry US abdomen complete Comparison: None Findings: The visualized pancreas is normal. The aorta and inferior vena cava are normal caliber. Liver measures 14.3 cm in length and has normal echogenicity. There is no intrahepatic bile duct dilatation. The common duct is 3 mm in diameter. There are large gallstones within the gallbladder. There is no gallbladder wall thickening or pericholecystic fluid. The sonographic Hicks's sign was negative. The main portal vein is antegrade. The right kidney is 8.6 cm in length. The left kidney is 10.0 cm in length. The spleen is normal. No ascites. IMPRESSION: Cholelithiasis. This document has been electronically signed by: Audelia Kauffman MD on 03/22/2025 13:21:44
--- OUTSIDE RECORDS SUMMARY | 2025-03-21 08:58 | XMS_ITS | Clinical Summary ---
Author Organization [facility] Address [address] [place] [address] Phone Care Team Providers Care Support Director Name Role Phone Zeb Paz MD Primary Care Provider [phone] Allergies No known active allergies Medications dimethyl fumarate 240 mg capsule,delayed release(DR/EC) 12/05/2024 Acti ve ergocalciferol (VITAMIN D-2) 1,250 mcg (50,000 unit) capsule Take 1 capsule (50,000 Units total) by mouth 1 (one) time per week. 4 each 11 01/05/2025 6 Active Active Problems Problem Noted Date Diagnosed Date MS (multiple sclerosis) ([facility] V24, CMS/[facility] V2 8) 01/19/2025 Encounters Date Type Department Care Team Description 02/15/2025 8:16 AM EDT - 02/15/2025 11:59 PM EDT Hospital Encounter [facility] [address] [phone] MS (multiple sclerosis) (CMS/HCC V24, CMS/HCC V28) (Primary Dx) Discharge Disposition: Home or Self Care 02/01/2025 7:35 AM EDT - 02/01/2025 11:59 PM EDT Hospital Encounter [facility] [address] [phone] MS (multiple sclerosis) (CMS/HCC V24, CMS/HCC V28) (Primary Dx) Discharge Disposition: Home or Self Care 01/30/2025 10:00 AM EDT Office Visit [facility] [address] [place] [phone] Livier Sanchez MD Multiple sclerosis ([facility]/HCC V24, CMS/[facility] V28) (Primary Dx); Gait abnormality; High risk medication use; Ataxia 01/09/2025 Telephone [facility] Outpatient Rehabilititation - [address] [phone] Livier Sanchez MD OCREVUS AUTH RQST; AUTH NOT REQRD 01/05/2025 8:30 AM EDT Office Visit [address] [phone] Livier Sanchez MD Multiple sclerosis (CMS/[facility] V24, CMS/[facility] V28) (Primary Dx); Gait abnormality; High risk medication use from Last 3 Months Social History Tobacco [...] Description 04/10/2025 8:30 AM EDT Office Visit [facility] [address] [phone] Livier Sanchez MD 175 [facility] [address] [place] [address] 08/01/2025 8:00 AM EDT Appointment [facility] [place] [facility] - [place] 175 [facility] [address] [place] [address] Health Maintenance Due Date Last Done Comments DTaP,Tdap,and Td Vaccines (1 - Tdap) 1995 Hepatitis B Vaccines (1 of 3 - 19+ 3-dose series) 1995 COVID-19 Vaccine (2023-2 5 season) 2024 Cholesterol Screening (Lipid Panel) 09/07/2024 Depression Screening 09/07/2024 Social Influencers of Health Screening 09/07/2024 Influenza Vaccine (Season Ended) 2025 Colorectal Cancer Screening: FIT-DNA (Cologrosina) 02/25/2027 02/26/2024 HIV Screening Completed 12/08/2024 Hepatitis [...] Procedure Name Priority Date/Time Associated Diagnosis Comments HEPATITIS C ANTIBODY Routine 12/08/2024 9:18 AM EST Multiple sclerosis (CMS/HCC V24, CMS/HCC V28) HIV 1, 2 ANTIBODY, P24 ANTIGEN WITH REFLEX TO DIFFERENTIATION Routine 12/08/2024 9:18 AM EST Multiple sclerosis (CMS/HCC V24, CMS/HCC V28) from Last 3 Months or Most Recently Relevant to Health Maintenance Results * Hepatitis C antibody (12/08/2024 9:18 AM EST) Hepatitis C Antibody Negative Negative LAB CHEMISTRY METHOD 12/08/2024 2:51 PM EST [facility] Blood Venous blood specimen / Unknown Venipuncture / Unknown 12/08/2024 9:18 AM EST 12/08/2024 9:18 AM EST us Livier Sanchez MD LAB BLOOD ORDERABLES Fin al Result Performing Organization Address City/State/[facility] Co de Phone Number [facility] [address] [place] [address], [place] [phone] * HIV 1,2 antibody, p24 antigen with reflex to differentiation (12/08/2024 9:18 AM EST) [facility] HIV Combo AB/AG Negative Negative LAB CHEMISTRY METHOD 12/08/2024 2:52 PM EST [facility] Blood Venous blood specimen / Unknown Venipuncture / Unknown 12/08/2024 9:18 AM EST 12/08/2024 9:18 AM EST Narrative [facility] - 12/08/2024 2:52 PM EST [...] MD LAB BLOOD ORDERABLES Fin al Result [facility] [address] [place] [address], from Last 3 Months or Most Recently Relevant to Health Maintenance Insurance [facility] [employer] Care Teams Support Director Relationship Specialty Start Date End Date Zeb Paz MD [address] [place] [address] PCP - General Internal Medicine 02/15/25
== END 2025-03-21 08:41 | disposition home or self-care (01) ==
LOC: HO.US 08:40
PROVIDERS: PCP Internal Medicine; Visit Provider Internal Medicine
DX: R79.89 Other specified abnormal findings of blood chemistry (principal)
CPT/HCPCS: 76700

== ENCOUNTER → 2025-03-21 08:45 | Outpatient (BNV) | payer OTHER, SELFPAY | PROVIDERS: PCP Internal Medicine; Visit Provider Radiology Diagnostic Radiology | DX: K80.20 Calculus of gallbladder without cholecystitis without obstruction (principal) | CPT/HCPCS: 76700 ==

== ENCOUNTER 2025-05-11 08:01 | Outpatient (AMB) | payer OTHER, SELFPAY ==
--- OUTSIDE RECORDS SUMMARY | 2025-05-11 08:05 | XMS_ITS | Clinical Summary ---
Author Organization [facility] Address [address] [place] [address] Phone Care Team Providers Care Dip Brazier Name Role Phone Zeb Paz MD Primary Care Provider [phone] Social History Tobacco Use Types Packs/Day Years Used Date Smoking Tobacco: Never Assessed Sex and Gender Information Value Date Recorded Sex Assigned at Not on file Legal Sex Male 2:34 PM EST Gender Identity Not on file Sexual Orientation Not on file Plan of Treatment Not on file Medical Devices Not on file Insurance [facility] Care Teams Dip Brazier Relationship Specialty Start Date End Date Zeb Paz MD [address] [place] [address] PCP - General Internal Medicine 10/11/24 Additional Source Comments The information contained in this document represents components of the legal health record. It is not the complete legal health record.[facility]
--- OUTSIDE RECORDS SUMMARY | 2025-05-11 08:05 | XMS_ITS | Clinical Summary ---
Author Organization [facility] Address [address] [place] [address] Phone Care Team Providers [employer] Name Role Phone Zeb Paz MD Primary Care Provider [phone] Allergies No known active allergies Medications ocrelizumab (OCREVUS IV) Infuse into a venous catheter. Active dalfampridine 10 mg tablet extended release 12 hr Take 10 mg by mouth every 12 (twelve) hours. 60 tablet 3 5 Active ergocalciferol (VITAMIN D-2) 1,250 mcg (50,000 unit) capsule Take 1 capsule (50,000 Units total) by mouth 1 (one) time per week. 4 each 11 5 04/10/20 26 Active dalfampridine 10 mg tablet extended release 12 hr MSOT 60 tablet 3 5 04/12/20 25 Discontinu ed(Reorder ) Active Problems Problem Noted Date Diagnosed Date MS (multiple sclerosis) (CMS/HCC V24, CMS/HCC V2 8) 01/19/2025 Encounters Date Type Department Care Team Description 04/19/2025 7:45 AM EDT - 04/19/2025 11:59 PM EDT Hospital Encounter [facility] MRI [address] [place] [phone] Multiple sclerosis (CMS/HCC V24, CMS/HCC V28) Discharge Disposition: Home or Self Care 04/19/2025 7:45 AM EDT - 04/19/2025 11:59 PM EDT Hospital Encounter [facility] MRI [address] [place] [address] Multiple sclerosis ([facility] V24, [facility] V28) Discharge Disposition: Home or Self Care 04/17/2025 Telephone [facility] [address] [address] Rios Watson [place] Insurance (Wanted to know med list to see if insurance would cover meds like dalfampridine) 04/10/2025 8:30 AM EDT Office Visit [address] [phone] Livier Sanchez MD Multiple sclerosis ([facility] V24, [facility] V28) (Primary Dx); Gait abnormality; Ataxia 02/15/2025 8:16 AM EDT - 02/15/2025 11:59 PM EDT Hospital Encounter [facility] [place] Outpatient Rehabil[facility]itation - [address] [phone] MS (multiple sclerosis) ([facility] V24, [facility] V28) (Primary Dx) Discharge Disposition: Home or Self Care from Last 3 Months Social History Tobacco Use Types Packs/Day Years Used Date Smoking Tobacco: Never Assessed Sex and Gender Information Value Date Recorded Sex Assigned at Not on file Legal Sex Male 4:18 PM EST Gender Identity Not on file Sexual Orientation Not on file Last Filed Vital Signs Vital Sign Reading Time Taken Comments Blood Pressure 146/93 04/10/2025 8:21 AM EDT Pulse 99 04/10/2025 8:21 AM EDT Temperature 36.9 C (98.5 F) 04/10/2025 8:21 AM EDT Respiratory Rate 16 02/15/2025 11:54 AM EDT Oxygen Saturation 98% 04/10/2025 8:21 AM EDT Inhaled Oxygen Concentration - - Weight 70.3 kg (155 lb) 04/10/2025 8:21 AM EDT Height 180.3 cm (5' 11 ) 04/10/2025 8:21 AM EDT Body Mass Index 21.62 04/10/2025 8:21 AM EDT Plan of Treatment Upcoming Encounters Date Type Department Care Team (Late st Contact Info) Description 08/01/2025 8:00 AM EDT Appointment [facility] [place] [address] [place] [phone] 08/01/2025 8:30 AM EDT Office Visit [facility] [place] [address] [facility] [address] [place] [phone] Saritha James PA [address] [place] [address] Health Maintenance Due Date Last Done Comments DTaP,Tdap,and Td Vaccines (1 - Tdap) 1995 Hepatitis B Vaccines (1 of 3 - 19+ 3-dose series) 1995 COVID-19 Vaccine (2023-2 5 season) 2024 Cholesterol Screening (Lipid Panel) 09/07/2024 Depression Screening 09/07/2024 Social Influencers of Health Screening 09/07/2024 Influenza Vaccine (#1) 2025 Colorectal Cancer Screening: FIT-DNA (Cologuard) 02/25/2027 [...] 5 Years) and At-Risk Patients (6 to 49 Years) Aged Out No longer eligi ble based on patient's age to complete this topic RSV Immunization Patients Un kathryn 20 months Aged Out No longer eligible b ased on patient's age to complete this topic Varicella Vaccines Aged Out No longer eligible based on patient's age to complete this topic Procedures Procedure Name Priority Date/Time Associated Diagnosis Comments MR BRAIN WO AND W CONTRAST Routine 04/19/2025 9:07 AM EDT Multiple sclerosis (CMS/HCC V24, CMS/HCC V28) MR CERVICAL SPINE WO AND W CONTRAST Routine 04/19/2025 9:00 AM EDT Multiple sclerosis (CMS/HCC V24, CMS/HCC V28) HEPATITIS C ANTIBODY Routine 12/08/2024 9:18 AM EST Multiple sclerosis (CMS/HCC V24, CMS/HCC V28) HIV 1, 2 ANTIBODY, P24 ANTIGEN WITH REFLEX TO DIFFERENTIATION Routine 12/08/2024 9:18 AM EST Multiple sclerosis (CMS/HCC V24, CMS/HCC V28) from Last 3 Months or Most Recently Relevant to Health Maintenance Results * MR Brain wo and w Contrast (04/19/2025 9:07 AM EDT) Anatomical Region Laterality Modality Head and Neck Magnetic Resonan ce 04/19/2025 12:1 7 PM EDT Impressions 04/19/2025 12:59 PM EDT No change in multiple demyelinating lesions throughout the supratentorial and infratentorial white matter. No new lesions or abnormal enhancement to suggest active demyelination. -------- FINAL REPORT -------- Dictated By: JUAN PABLO MCKEON Dictated Date: 04/19/2025 12:17 ET Assigned Physician: JUAN PABLO MCKEON Reviewed and Electronically Signed By: JUAN PABLO MCKEON Signed Date: 04/19/2025 12:59 ET Workstation ID: [id number] Transcribed By: Self Edit Transcribed Date: 04/19/2025 12:17 ET Narrative 04/19/2025 12:59 PM EDT PROCEDURE: Brain MRI INDICATION: Multiple sclerosis TECHNIQUE: Multiplanar, multisequence MRI of the brain without and with contrast. 15 mL Dotarem injected intravenously without complication from a 15 mL vial COMPARISON: 07/28/2024 FINDINGS: No acute infarct, mass effect, or intracranial hemorrhage. Multiple T2 hyperintense foci throughout the supratentorial and infratentorial white matter are similar compared to the prior exam. Several lesions demonstrate T1 hypointensity. No new lesions or abnormal enhancement. Ventricles are stable in size. No hydrocephalus. Sella and foramen magnum are within normal limits. No abnormal intracranial susceptibility artifact. Major intracranial arterial flow voids are within normal limits. Major dural venous sinuses enhance normally with contrast. Scattered mucosal thickening seen throughout the sinuses. Mastoid air cells are clear. Orbits and extracranial soft tissues are normal. Calvarium is normal. Procedure Note Juan Pablo Mckeon MD - 04/19/2025 PROCEDURE: Brain MRI INDICATION: Multiple sclerosis TECHNIQUE: Multiplanar, multisequence MRI of the brain without and withcontrast. 15 mL Dotarem injected intravenously without complication froma 15 mL vial COMPARISON: 07/28/2024 FINDINGS: No acute infarct, mass effect, or intracranial hemorrhage. Multiple T2 hyperintense foci throughout the supratentorial andinfratentorial white matter are similar compared to the prior exam.Several lesions demonstrate T1 hypointensity. No new lesions or abnormalenhancement. Ventricles are stable in size. No hydrocephalus. Sella and foramen magnum are within normal limits. No abnormalintracranial susceptibility artifact. Major intracranial arterial flow voids are within normal limits. Majordural venous sinuses enhance normally with contrast. Scattered mucosal thickening seen throughout the sinuses. Mastoid aircells are clear. Orbits and extracranial soft tissues are normal. Calvarium is normal. IMPRESSION: No change in multiple demyelinating lesions throughout the supratentorialand infratentorial white matter. No new lesions or abnormal enhancementto suggest active demyelination. -------- FINAL REPORT -------- Dictated By: JUAN PABLO MCKEON Dictated Date: 04/19/2025 12:17 ET Assigned Physician: JUAN PABLO MCKEON Reviewed and Electronically Signed By: JUAN PABLO MCKEON Signed Date: 04/19/2025 12:59 ET Workstation ID: [id number] Transcribed By: Self Edit Transcribed Date: 04/19/2025 12:17 ET Livier Sanchez MD [facility] [place]EDURES Final Result * MR Cervical Spine wo and w [...] Signed Date: 04/19/2025 13:03 ET Workstation ID: [id number] Transcribed By: Self Edit Transcribed Date: 04/19/2025 [...] Signed Date: 04/19/2025 13:03 ET Workstation ID: [id number] Transcribed By: Self Edit Transcribed Date: 04/19/2025 12:16 ET us Livier Sanchez MD IMG MRI PROCEDURES Final Result * Hepatitis C antibody (12/08/2024 9:18 AM EST) Pathologist [facility] Hepatitis C Antibody Negative Negative LAB CHEMISTRY METHOD 12/08/2024 2:51 PM EST [facility] Blood Venous blood specimen / Unknown Venipuncture / Unknown 12/08/2024 9:18 AM EST 12/08/2024 9:18 AM EST us Livier Sanchez MD LAB BLOOD ORDERABLES Fin al Result Performing Organization Address [facility] Co de Phone Number [facility] [address] [place] [address], [place] [phone] * HIV 1,2 antibody, p24 antigen with reflex to differentiation (12/08/2024 9:18 AM EST) [facility] HIV Combo AB/AG Negative Negative LAB CHEMISTRY METHOD 12/08/2024 2:52 PM EST [facility] Blood Venous blood specimen / Unknown Venipuncture / Unknown 12/08/2024 9:18 AM EST 12/08/2024 9:18 AM EST Narrative [facility] - 12/08/2024 2:52 PM EST This assay is a 4th generation assay allowing for earlier detection of HIV infection by detecting the presence of the HIV-1 p24 antigen as well as the traditional antibodies to HIV type 1 (including group O) and type 2. Use of a 4th generation assay is the current CDC recommendation for HIV screening. us Livier Sanchez MD LAB BLOOD ORDERABLES Fin al Result Performing Organization Address [facility] Co de Phone Number [facility] [address] [place] [address], [place] [phone] from Last 3 Months or Most Recently Relevant to Health Maintenance [place] [address] [place] [address] [employer] Care Teams [employer] Relationship Specialty Start Date End Date Zeb Paz MD [address] [place] [address] PCP - General Internal Medicine 02/15/25
--- NOTE | 2025-05-11 08:12 | MHC.PC.OV ---
Vital Signs 05/11/25 08:13 Height 5 ft 11 in Weight 145 lb BMI 20.2 BP 124/88 Blood Pressure Location Lt brachial Position Sitting Pulse 103 H Pulse Source Pulse Oximeter Temp 97.3 F Temp Source Temporal Artery Scan Pulse Oximetry (%) 98 Oxygen Delivery Method Room Air Intake Visit Reasons: MS Accompanied by: Mother Allergies No Known Allergies Allergy (Verified 05/11/25 08:13) Medication List - Last Reconciled 05/11/25 by Zeb Paz MD blood pressure monitor (Blood Pressure Kit) As directed cholecalciferol (vitamin D3) 625 mcg PO QWEEK dalfampridine ER mg PO ketoconazole 2% 1 appl topical 2XW ocrelizumab (Ocrevus) 600 mg IV [id number] Tobacco use date assessed: 05/11/25 Dental Screening Dental Screen Date: 11/06/24 Did you have a dental visit in the last 12 months?: No Did you have a dental problem in the last 6 months where you did not have access to dental care?: No Was dental information given to patient?: Yes PFSH Medical History Multiple sclerosis, relapsing-remitting Colon cancer screening Colonoscopy refused Surgical History No pertinent past surgical history Family History Maternal Grandfather Colon cancer Maternal Grandmother Lung cancer Other Mental health disorder Social History Housing: House Alcohol intake: never Patient Tobacco Use Status: Never used Tobacco e-Cigarette/Vaping Use: Never Used Second Hand Smoke Exposure: No service: No Current occupational status: unemployed Cognitive needs: No Hearing needs: No Vision needs: No Questionnaire PHQ-9 Over the last 2 weeks, how often have you been bothered by any of the following problems? 1. Little interest or pleasure in doing things: several days 2. Feeling down, depressed, or hopeless: several days 3. Trouble falling or staying asleep, or sleeping too much: more than half the days 4. Feeling tired or having little energy: more than half the days 5. Poor appetite or overeating: more than half the days 6. Feeling bad about yourself - or that you are a failure or have let yourself or your family down: several days 7. Trouble concentrating on things, such as reading the newspaper or watching television: more than half the days 8. Moving or speaking so slowly that other people could have noticed. Or the opposite - being so fidgety or restless that you have been moving around a lot more than usual: several days 9. Thoughts that you would be better off or of hurting yourself in some way: not at all Total score: 12 Source: Developed by Drs. Vinh Wang, Eve Burgos, Elpidio Giraldo and colleagues, with an educational jose eduardo from [employer]. Thrive Questionnaire Date Thrive assessed: 05/09/25 I am a: Patient What is your living situation today?: I have a steady place to live Within the past 12 months, did the food you bought not last and you didn't have the money to get more?: Sometimes True Within the past 12 months, did you worry whether your food would run out before you got money to buy more?: Sometimes True Do you have trouble paying for medicines?: No Do you have trouble getting transportation to medical appointments?: Yes Do you have trouble paying your heating and electricity bill?: Yes Do you have trouble taking care of your child, family member or friend?: Yes Do you have trouble with day-to-day activities such as bathing, preparing meals, shopping, managing finances, etc.?: No Are you currently unemployed and looking for a job?: Yes Are you interested in more education?: Yes Please select the resources that you would like help with: None Currently or been in a relationship where the following occur: No concerns reported THRIVE Score: 4 AUDIT C Alcohol Use Questionnaire (AUDIT-C) 1. How often do you have a drink containing alcohol?: Never 3. How often do you have six or more drinks on one occasion?: Never Total Score: 0 JOSE ALEJANDRO-7 AMB Questionnaire JOSE ALEJANDRO-7 Date JOSE ALEJANDRO - 7 assessed: 02/03/24 Feeling nervous, anxious, or on edge: 1 = Several days Not being able to stop or control worryin = Several days Worrying too much about different things: 1 = Several days Trouble relaxin = More than half the days Being so restless that it is hard to sit still: 1 = Several days Becoming easily annoyed or irritable: 2 = More than half the days Feeling afraid as if something awful might happen: 1 = Several days Total JOSE ALEJANDRO-7 score (0-4 normal; 5-9 mild; 10-14 moderate; 15-21 severe): 9 Source: Developed by Drs. Vinh Wang, Eve Burgos, Elpidio Giraldo and colleagues, with an educational jose eduardo from [employer]. Physical exam (Primary Care) Vital Signs: Last Vital Signs Temp 97.3 F 05/11/25 08:13 Pulse 103 H 05/11/25 08:13 BP 124/88 05/11/25 08:13 Pulse Ox 98 05/11/25 08:13 Oxygen Delivery Method Room Air 05/11/25 08:13 BMI result Body Mass Index 20.2 Tobacco/Smoking Status: Tobacco use Status Tobacco use date assessed 05/11/25 05/11/25 08:17 Patient Tobacco Use Status Never used Tobacco 05/11/25 08:17 e-Cigarette/Vaping Use Never Used 05/11/25 08:17 PHQ-9: PHQ-9 Score PHQ-9: Total score 12 05/11/25 08:35 Thrive Assessment: Date of Thrive Assessment Date Thrive assessed 05/09/25 05/11/25 08:17 Currently or been in a relationship where the following occur: No concerns reported Const General: alert; No acute distress Eyes Conjunctivae: conjunctivae normal Resp Auscultation: clear to auscultation bilaterally Cardio Rate: regular rate Rhythm: regular rhythm GI Inspection: Yes normal to inspection Extrem General: Yes normal to inspection and No edema Coding Level of Care Code Est Pt Level 4 (74807) Complex EM visit Add On G2211 Diagnoses Multiple sclerosis, relapsing-remitting G35 PSA elevation R97.20 Cholelithiasis K80.20 Hypercholesterolemia E78.00 Impaired fasting blood sugar R73.01 Assessment & Plan Assessment & Plan (1) Multiple sclerosis, relapsing-remitting: Comment: Multiple lesions in C spine, T spine , Brainstem etc Code(s): G35 - Multiple sclerosis Category: Medical Plan: Patient had MRIs done and no new lesions and is being followed up by Neurology (2) PSA elevation: Code(s): R97.20 - Elevated prostate specific antigen [PSA] Category: Medical Plan: Discussion with the patient regarding the elevated prostate number advised to be referred to Urology (3) Cholelithiasis: Code(s): K80.20 - Calculus of gallbladder without cholecystitis without obstruction Category: Medical Plan: Low-fat diet and exercise (4) Hypercholesterolemia: Code(s): E78.00 - Pure hypercholesterolemia, unspecified Category: Medical (5) Impaired fasting blood sugar: Code(s): R73.01 - Impaired fasting glucose Category: Medical Plan History of Present Illness The patient is a 49-year-old male presenting for follow-up of demyelinating disease and evaluation of elevated PSA levels. The patient has a history of demyelinating disease, with multiple lesions identified in the cervical and thoracic spinal cord as well as the supratentorial and infratentorial white matter. Recent MRIs conducted on April 19, 2025, showed no new lesions or abnormal enhancement, indicating no active demyelination. The patient was noted to have an elevated liver function test, and an ultrasound performed on March 21 revealed cholelithiasis. Liver function tests have since normalized. The patient has an elevated PSA level, which was discussed during the visit, and a referral to urology was advised for further evaluation. Preventative care measures include a scheduled colon cancer screening with gastroenterology. Health Maintenance - Colon cancer screening scheduled with gastroenterology - Discussion on low-fat diet and exercise for overall health maintenance Social History - Diet: Consumes raisins regularly to maintain bowel regularity - Exercise: Advised to keep active while being cautious of heat exposure Review of Systems - Cardiovascular: Denies chest pain, palpitations, or syncope - Respiratory: Denies dyspnea, cough, or wheezing - Gastrointestinal: Reports regular bowel movements with the aid of raisins Physical Exam - Cardiovascular: Heart rate approximately 80 bpm, regular rhythm Results - MRI (April 19, 2025): Multiple demyelinating lesions in cervical and thoracic spinal cord, no new lesions or enhancement - Brain MRI (April 19, 2025): No changes in demyelinating lesions, no new lesions or enhancement - Ultrasound (March 21): Cholelithiasis - Blood work (February 05): Normal blood count, normal liver function, elevated cholesterol and PSA Plan The patient will continue to be monitored for demyelinating disease with regular follow-up MRIs to assess for any new lesions or changes. A referral to urology is advised for further evaluation of the elevated PSA level, and the patient is encouraged to maintain a low-fat diet and regular exercise to manage cholesterol levels. The patient is scheduled for a colon cancer screening with gastroenterology, and liver function tests will continue to be monitored given the history of cholelithiasis. Patient was informed and verbally consented to the use of an ambient scribe for clinic note documentation during this visit. Discussion Notes I discussed with the patient the findings of the recent MRIs, which showed no new lesions, indicating stable demyelinating disease. We also talked about the elevated PSA level and the need for a urology referral to further evaluate this finding. I advised the patient on the importance of maintaining a low-fat diet and regular exercise to manage cholesterol levels and overall health. The patient was informed about the upcoming colon cancer screening and the need to monitor liver function tests due to the history of cholelithiasis. Patient Instructions - Follow up with urology for elevated PSA evaluation. - Maintain a low-fat diet and regular exercise routine. - Attend scheduled colon cancer screening with gastroenterology. - Monitor liver function tests as advised. Orders: Referrals Urology Referral R97.20 - Elevated prostate specific antigen [PSA]
[2025-05-11 08:13] VITALS: BP 124/88; PULSE 103; TEMP 36.3; O2SAT 98; BMI 20.2
== END 2025-05-11 08:49 | disposition home or self-care (01) ==
LOC: HO.HMCH 08:02
PROVIDERS: PCP Internal Medicine; Visit Provider Internal Medicine
DX: G35 Multiple sclerosis (principal); R97.20 Elevated prostate specific antigen [PSA]; K80.20 Calculus of gallbladder without cholecystitis without obstruction; E78.00 Pure hypercholesterolemia, unspecified; R73.01 Impaired fasting glucose

== ENCOUNTER → 2025-05-11 08:01 | Outpatient (BNVA) | payer OTHER, SELFPAY | PROVIDERS: PCP Internal Medicine; Visit Provider Internal Medicine | DX: G35 Multiple sclerosis (principal); R97.20 Elevated prostate specific antigen [PSA]; K80.20 Calculus of gallbladder without cholecystitis without obstruction; E78.00 Pure hypercholesterolemia, unspecified; R73.01 Impaired fasting glucose; Z13.39 Encounter for screening examination for other mental health and behavioral disorders | CPT/HCPCS: 99212 ==

== ENCOUNTER 2025-05-16 08:20 | Outpatient (AMB) | payer OTHER, SELFPAY ==
--- NOTE | 2025-05-16 08:30 | A.OFFVIS_ITS ---
Intake Visit Reasons: 4 mnts /MS Allergies No Known Allergies Allergy (Verified 05/11/25 08:13) HPI Comments Details: 49 yo man who started having problem with balance and difficulty walking in 2021. His exam revealed significant ataxia, and his MRI brain in Jul revealed moderate to severe bilateral cerebral white matter and brainstem non enhancing lesions suggestive of demylinating disease. Anti NMO and MOG titers at [facility] done in 2023 were negative. MRI of C and T spine revealed multiple areas of chronic demylination type pattern. He was given three days of solumedrol and was started on dimethyl fumarate in Aug. Since I last saw him, he sought a second opinion at MS center in [place] and was switched to Ocrevus. He had one treatment already. Otherwise he was stable with no new symptoms. Balance and walking was still off. [facility] Medical History (Updated 05/16/25 @ 08:33 by Olinda Wilkinson MD) Multiple sclerosis Ataxia Multiple sclerosis, relapsing-remitting Colon cancer screening Colonoscopy refused Surgical History No pertinent past surgical history Family History Maternal Grandfather Colon cancer Maternal Grandmother Lung cancer Other Mental health disorder Social History Housing: House Alcohol intake: never Patient Tobacco Use Status: Never used Tobacco e-Cigarette/Vaping Use: Never Used Second Hand Smoke Exposure: No service: No Current occupational status: unemployed Cognitive needs: No Hearing needs: No Vision needs: No Review of Systems Const Details: Constitutional:?No fever, chills, fatigue, weight loss, or night sweats. HEENT:?No headache, vision changes, hearing loss, nasal congestion, sore throat. Neurological:?No dizziness, syncope, seizures, numbness, tingling, weakness, tremors, memory loss. Psychiatric:?No anxiety, depression, mood swings, sleep disturbance, or hallucinations. Endocrine:?No heat/cold intolerance, polydipsia, polyuria, or hair/skin changes. Hematologic/Lymphatic:?No easy bruising, bleeding, or lymphadenopathy. Integumentary (Skin):?No rash, lesions, itching, or color changes. ? Physical Exam Neuro Other: Mental Status: Alert and oriented to person, place, and time. Normal attention. Normal spontaneous speech, fluency, and comprehension. No obvious issues with mood and memory. Affect is appropriate. Cranial Nerves: CN II: Visual srinivasan full to confrontation, visual acuity intact. CN III, IV, : Pupils equal, round, reactive to light and accommodation. Extraocular movements are normal. CN V: Facial sensation is normal. CN VII: Facial movements symmetrical. CN VIII: Hearing intact to bedside conversation is normal. CN IX, X: Palate elevates symmetrically. CN XI: Shoulder shrug and head turn symmetrical. CN XII: Tongue midline without atrophy or fasciculations. Moderately ataxic gait. Extrapyramidal: Full facial expressions and blinking. No rigidity. Movements are appropriate with no tremor or abnormality. Speech: Normal; no dysarthria or tremor. Assessment & Plan Assessment & Plan (1) Multiple sclerosis, relapsing-remitting: Comment: Anti MOG and NMO serum test at [facility] in Jul 2024: Neg MRI brain WO at [facility] in Jul 2024: Mod to sev non enhancing lesions in cerebral WM and brainstem suggestive of MS MRI C + T spine at [place] in Aug 2024: Patchy areas of FLAIR lesions in cervical and thoracic spine, some in upper cervical seem to be enhancing. Code(s): G35 - Multiple sclerosis Category: Medical Plan Impression: Remitting relapsing MS Rec: Now that he was seeing Dr. Jesus Hubbard at MS center in [place], I have not intervened further. No f/u appt was made. He will prefer continuing care in [facility]. Coding Level of Care Code Tele Est Pt Level 4 (41135) Diagnoses Multiple sclerosis, relapsing-remitting G35
--- OUTSIDE RECORDS SUMMARY | 2025-05-16 08:32 | XMS_ITS | Clinical Summary ---
Author Organization [facility] Address [address] [place], [place] [id number] Phone Care Team Providers Care Paper Deliverer Name Role Phone Zeb Paz MD Primary Care Provider [phone] Social History Tobacco Use Types Packs/Day Years Used Date Smoking Tobacco: Never Assessed Sex and Gender Information Value Date Recorded Sex Assigned at Not on file Legal Sex Male 2:34 PM EST Gender Identity Not on file Sexual Orientation Not on file Plan of Treatment Not on file Medical Devices Not on file Insurance [employer] [place] A[employer] Care Teams Paper Deliverer Relationship Specialty Start Date End Date Zeb Paz MD [address] [place] [address] PCP - General Internal Medicine 10/11/24 Additional Source Comments The information contained in this document represents components of the legal health record. It is not the complete legal health record.[facility]
== END 2025-05-16 08:45 | disposition home or self-care (01) ==
LOC: HO.HSM 08:21
PROVIDERS: PCP Internal Medicine; Visit Provider Psychiatry & Neurology Neurology
DX: G35 Multiple sclerosis (principal)
CPT/HCPCS: 99214

== ENCOUNTER 2025-06-11 10:10 | Day surgery (SDC) | payer OTHER, SELFPAY ==
--- OUTSIDE RECORDS SUMMARY | 2025-04-19 07:45 | XMS_ITS | Encounter Summary ---
Author Organization [facility] Address [address] [place] [address] Care Team Providers Care Nylon Mender Name Role Phone Zeb Paz MD Primary Care Provider [phone] Reason for Referral * Imaging (Routine) - Pending Review Specialty Diagnoses / Procedures Referred By Contac t Referred To Contact Radiology Diagnoses Multiple sclerosis (CMS/HCC V24, CMS/HCC V28) Procedures MR Cervical Spine wo and w Contrast Livier Sanchez MD [address] [address] Phone: tel: fax: [facility] Referral ID Status Reason Start Date Expiration Date V isits Requested Visits Authorized [id number] Pending Review 04/10/2025 04/10/2026 1 1 Reason for Visit * Imaging (Routine) - Pending Review Specialty Diagnoses / Procedures Referred By Contac t Referred To Contact Radiology Diagnoses Multiple sclerosis (CMS/HCC V24, CMS/HCC V28) Procedures MR Cervical Spine wo and w Contrast Livier Sanchez MD [address] [address] Phone: tel: fax: [facility] Referral ID Status Reason Start Date Expiration Date V isits Requested Visits Authorized [id number] Pending Review 04/10/2025 04/10/2026 1 1 Encounter Details Date Type Department Care Team (Latest Contact Info) Description 04/19/2025 7:45 AM EDT - 04/19/2025 11:59 PM EDT Hospital Encounter [facility] MRI [address] [place] [phone] Multiple sclerosis ([facility] V24, [facility] V28) Discharge Disposition: Home or Self Care Social History Tobacco Use Types Packs/Day Years Used Date Smoking Tobacco: Never Assessed Sex and Gender Information Value Date Recorded Sex Assigned at Not on file Legal Sex Male 4:18 PM EST Gender Identity Not on file Sexual Orientation Not on file documented as of this encounter Medications at Time of Discharge dalfampridine 10 mg tablet extended release 12 hr Take 10 mg by mouth every 12 (twelve) hours. 60 tablet 3 04/10/2025 ergocalciferol (VITAMIN D-2) 1,250 mcg (50,000 unit) capsule Take 1 capsule (50,000 Units total) by mouth 1 (one) time per week. 4 each 11 04/10/2025 04/10/2026 ocrelizumab (OCREVUS IV) Infuse into a venous catheter. documented as of this encounter Discharge Disposition Disposition Code Departure Means Destination Home or Self Care documented in this encounter Plan of Treatment Upcoming Encounters Date Type Department Care Team (Late st Contact Info) Description 08/01/2025 8:00 AM EDT Appointment [facility] [place] [address] [phone] 08/01/2025 8:30 AM EDT Office Visit [facility] [place] [address] [phone] Saritha James PA [address] [phone] documented as of this encounter Procedures Procedure Name Priority Date/Time Associated Diagnosis Comments MR CERVICAL SPINE WO AND W CONTRAST Routine 04/19/2025 9:00 AM EDT Multiple sclerosis ([facility] V24, [facility] V28) documented in this encounter Results * MR Cervical Spine wo and w Contrast (04/19/2025 9:00 AM EDT) Anatomical Region Laterality Modality C-spine, Spine Magnetic Resonan ce 04/19/2025 12:1 6 PM EDT Impressions 04/19/2025 1:03 PM EDT No change in multiple demyelinating lesions throughout the cervical and upper thoracic cord. No new lesions or abnormal enhancement to suggest active demyelination. -------- FINAL REPORT -------- Dictated By: JUAN PABLO MCKEON Dictated Date: 04/19/2025 12:16 ET Assigned Physician: JUAN PABLO MCKEON Reviewed and Electronically Signed By: JUAN PABLO MCKEON Signed Date: 04/19/2025 13:03 ET Workstation ID: [id number] Transcribed By: Self Edit Transcribed Date: 04/19/2025 12:16 ET Narrative 04/19/2025 1:03 PM EDT PROCEDURE: Cervical spine MRI INDICATION: Multiple sclerosis TECHNIQUE: Multiplanar, multisequence MRI of the Cervical spine without and with contrast. 15 mL Dotarem injected intravenously without complication from a 15 mL vial COMPARISON: 09/07/2024. FINDINGS: Cervical alignment is unchanged. No fracture or suspicious marrow replacing lesion. Disc height and signal are relatively preserved. Mild facet arthritis at C7-T1 and C2-3. Patchy T2 hyperintense foci throughout the cervical and upper thoracic cord are similar compared to prior. For example within the right and central cord at C2, right cord at C3, left cord at C4, lateral cord bilaterally at C5, left lateral cord at C7, and left lateral cord at T1. Other T2 hyperintense lesions seen throughout the upper thoracic cord on sagittal imaging are also similar compared to prior. No new lesions or abnormal enhancement. No epidural collection or mass is seen within the spinal canal. Paraspinal muscles are within normal limits. Foramen magnum is normal. Findings by level: C2-C3: No focal disc protrusion, foraminal stenosis, or spinal canal stenosis. C3-C4: No focal disc protrusion, foraminal stenosis, or spinal canal stenosis. C4-C5: No focal disc protrusion, foraminal stenosis, or spinal canal stenosis. C5-C6: No focal disc protrusion, foraminal stenosis, or spinal canal stenosis. C6-C7: No focal disc protrusion, foraminal stenosis, or spinal canal stenosis. C7-T1: No focal disc protrusion, foraminal stenosis, or spinal canal stenosis. Procedure Note Juan Pablo Mckeon MD - 04/19/2025 PROCEDURE: Cervical spine MRI INDICATION: Multiple sclerosis TECHNIQUE: Multiplanar, multisequence MRI of the Cervical spine withoutand with contrast. 15 mL Dotarem injected intravenously withoutcomplication from a 15 mL vial COMPARISON: 09/07/2024. FINDINGS: Cervical alignment is unchanged. No fracture or suspicious marrow replacing lesion. Disc height and signal are relatively preserved. Mild facet arthritis atC7-T1 and C2-3. Patchy T2 hyperintense foci throughout the cervical and upper thoraciccord are similar compared to prior. For example within the right andcentral cord at C2, right cord at C3, left cord at C4, lateral cordbilaterally at C5, left lateral cord at C7, and left lateral cord at T1.Other T2 hyperintense lesions seen throughout the upper thoracic cord onsagittal imaging are also similar compared to prior. No new lesions orabnormal enhancement. No epidural collection or mass is seen within thespinal canal. Paraspinal muscles are within normal limits. Foramen magnum is normal. Findings by level: C2-C3: No focal disc protrusion, foraminal stenosis, or spinal canalstenosis. C3-C4: No focal disc protrusion, foraminal stenosis, or spinal canalstenosis. C4-C5: No focal disc protrusion, foraminal stenosis, or spinal canalstenosis. C5-C6: No focal disc protrusion, foraminal stenosis, or spinal canalstenosis. C6-C7: No focal disc protrusion, foraminal stenosis, or spinal canalstenosis. C7-T1: No focal disc protrusion, foraminal stenosis, or spinal canalstenosis. IMPRESSION: No change in multiple demyelinating lesions throughout the cervical andupper thoracic cord. No new lesions or abnormal enhancement to suggestactive demyelination. -------- FINAL REPORT -------- Dictated By: JUAN PABLO MCKEON Dictated Date: 04/19/2025 12:16 ET Assigned Physician: JUAN PABLO MCKEON Reviewed and Electronically Signed By: JUAN PABLO CMKEON Signed Date: 04/19/2025 13:03 ET Workstation ID: [id number] Transcribed By: Self Edit Transcribed Date: 04/19/2025 12:16 ET Livier Sanchez MD IMG MRI PROCEDURES Final Result documented in this encounter Visit Diagnoses Diagnosis Multiple sclerosis (CMS/HCC V24, CMS/HCC V28) Multiple sclerosis documented in this encounter Care Teams Nylon Mender Relationship Specialty Start Date End Date Zeb Paz MD [address] [place] [phone] PCP - General Internal Medicine 02/15/25 documented as of this encounter
[2025-06-07 15:15] VITALS: BMI 21.6
--- NOTE | 2025-06-08 09:40 | HO.ANESPROP2 ---
Documented by User: Priti Russo NP 06/08/25 09:41 HPI - Anesthesia Eval Consult details Narrative: 49yo M for Colonoscopy MS with IV tx [id number] [facility] Active Problems Active Problems: All Active Problems Impaired fasting blood sugar (Acute) Hypercholesterolemia (Acute) Cholelithiasis (Acute) LFT elevation (Acute) PSA elevation (Acute) Seborrhea (Acute) Vision changes (Acute) Demyelinating disease (Acute) Tachycardia (Acute) Constipation (Acute) Colon cancer screening (Acute) Allergic rhinitis (Acute) Blood pressure elevated without history of HTN (Acute) Multiple sclerosis, relapsing-remitting (Acute) Ataxia (Acute) Past Medical History Medical History Psoriasis Elevated cholesterol Ataxia Multiple sclerosis, relapsing-remitting Colonoscopy refused Family History Family History Maternal Grandfather Colon cancer Maternal Grandmother Lung cancer Other Mental health disorder Surgical History Surgical History No pertinent past surgical history Social History Social History Housing: House Are you a primary specialist wound care to a significant other at home: No Do you presently have visiting nurse or other home services: No Alcohol intake: never Patient Tobacco Use Status: Never used Tobacco e-Cigarette/Vaping Use: Never Used Second Hand Smoke Exposure: No Have you been hit, kicked, punched, or otherwise hurt by someone within the past year? If so, by whom?: No Are you DNR?: No Advance Directives: No Advance Directives Information Provided: Yes Poor oral hygiene: No service: No Current occupational status: unemployed Cognitive needs: No Hearing needs: No Vision needs: No Meds Allergies Allergy/AdvReac Type Severity Reaction Status Date / Time No Known Allergies Allergy Verified 06/11/25 10:25 Home Medications ?Medication ?Instructions ?Recorded ?Confirmed ?Last Taken ?Type cholecalciferol (vitamin D3) 625 625 mcg PO QWEEK 02/05/25 06/11/25 Unknown History mcg (25,000 unit) capsule ocrelizumab 30 mg/mL intravenous 600 mg IV [id number] 02/05/25 06/11/25 Unknown History solution (Ocrevus) dalfampridine 10 mg mg PO 05/11/25 05/11/25 Unknown History tablet,extended release,12 hr Exam Height,Weight and Vital Signs: Height 5 ft 11 in Weight 70.307 kg Pertinent Lab Results Pertinent Lab Results: Laboratory Tests 02/05/25 10:54 WBC 6.6 Hgb 17.0 Hct 48.9 Plt Count 231 Sodium 138 Potassium 4.5 Chloride 103 Carbon Dioxide 30 H BUN 9 Creatinine 1.17 Assessment and Plan Assessment Anesthesia Assessment: Chart Reviewed Documented by User: Evelia Lisa MD 06/11/25 10:38 PMFSH Past Medical History Medical History Psoriasis Elevated cholesterol Ataxia Multiple sclerosis, relapsing-remitting Colonoscopy refused Family History Family History Maternal Grandfather Colon cancer Maternal Grandmother Lung cancer Other Mental health disorder Family history of problems with anesthesia: No Surgical History Surgical History No pertinent past surgical history History of Problems with Anesthesia: No Social History Social History Housing: House Are you a primary specialist wound care to a significant other at home: No Do you presently have visiting nurse or other home services: No Alcohol intake: never Patient Tobacco Use Status: Never used Tobacco e-Cigarette/Vaping Use: Never Used Second Hand Smoke Exposure: No Have you been hit, kicked, punched, or otherwise hurt by someone within the past year? If so, by whom?: No Are you DNR?: No Advance Directives: No Advance Directives Information Provided: Yes Poor oral hygiene: No service: No Current occupational status: unemployed Cognitive needs: No Hearing needs: No Vision needs: No Meds Allergies Allergy/AdvReac Type Severity Reaction Status Date / Time No Known Allergies Allergy Verified 06/11/25 10:25 Home Medications ?Medication ?Instructions ?Recorded ?Confirmed ?Last Taken ?Type cholecalciferol (vitamin D3) 625 625 mcg PO QWEEK 02/05/25 06/11/25 Unknown History mcg (25,000 unit) capsule ocrelizumab 30 mg/mL intravenous 600 mg IV [id number] 02/05/25 06/11/25 Unknown History solution (Ocrevus) dalfampridine 10 mg mg PO 05/11/25 05/11/25 Unknown History tablet,extended release,12 hr Exam Airway Mallampati Class: II TM Dist: >3cm Neck ROM: Full Heart: rrr Lungs: cta Assessment and Plan Assessment Anesthesia Assessment: Anesthesia Plan Discussed Final Anesthetic Review Family History of Problems with Anesthesia: No History of Problems with Anesthesia: No NPO: Yes ASA Class: III Final Preanesthetic Review: No Changes in Pt Med Stat, Meds/Allgs Chart Reviewed, Consent Obtained/Reviewed and Anes Risks/Benef Reviewed Patient Risk: Intermediate Procedure Risk: Low Anesthetic Plan Anesthetic Plan: MAC: Disposition: Standard PACU
[2025-06-11 10:30] VITALS: BP 145/95; PULSE 99; RESP 18; TEMP 36.4; O2SAT 98; BMI 20.2
--- NOTE | 2025-06-11 10:34 | PC.NURSE ---
Pt AXOX3. Pt changing behind curtain. Once done, pt had a witnessed fall. Pt attempted to sit in chair in bay and missed the seat. Pt slid to floor. Per pt. no pain, no injury and no complaints noted. Continue to monitor and assess patient.
[2025-06-11] MEDS: Lactated Ringers 1,000 ML 100 ML IVCONT (10:39)
[2025-06-11 11:40] VITALS: BP 96/64; PULSE 79; RESP 16; TEMP 36.6; O2SAT 98
[2025-06-11 11:45] VITALS: BP 103/69; PULSE 75; RESP 16; O2SAT 98
--- NOTE | 2025-06-11 11:46 | PM.OP ---
Brief Operative Note Date of Service: 06/11/25 Pre-op diagnosis: Screening Post-op diagnosis: other (Internal hemorrhoids) Procedure: Colonoscopy to the cecum and TI Surgeon: Vinh Byers MD Anesthesia: MAC Was an Exhaust And Muffler Repairer used for this Procedure?: No Estimated blood loss (mL): 0 Pathology: none sent Condition: stable Disposition: PACU
[2025-06-11 12:00] VITALS: BP 134/86; PULSE 75; RESP 16; TEMP 36.3; O2SAT 100
--- NOTE | 2025-06-11 13:54 | OP_ITS ---
DATE OF SERVICE: 06/11/2025 SURGEON: Vinh Byers MD INDICATIONS: The patient presents for evaluation of colorectal cancer screening. Full consent has been obtained from him for this, including risks of bleeding and perforation. PREOPERATIVE DIAGNOSIS: POSTOPERATIVE DIAGNOSIS: PROCEDURE PERFORMED: Colonoscopy to the cecum and terminal ileum. ESTIMATED BLOOD LOSS: COMPLICATIONS: ANESTHESIA: Monitored anesthesia care. ASSISTANTS: SPECIMENS: PREOPERATIVE DIAGNOSES: Colorectal cancer screening. POSTOPERATIVE DIAGNOSES: Colorectal cancer screening, internal hemorrhoids. DESCRIPTION OF PROCEDURE: The patient was placed in the left lateral decubitus position. The digital rectal exam revealed no abnormalities. The Olympus video pediatric colonoscope was entered into the rectum and advanced easily to the cecum. Once in the cecum, I did identify cecal pouch with appendiceal orifice a normal-appearing ileocecal valve. After a lot of irrigation and suctioning a good inspection of the cecum was obtained. The terminal ileum was cannulated and appeared normal. Scope was withdrawn back in the colon. The entire cecum and ileocecal valve appeared normal. The scope was then slowly withdrawn assessing all mucosal surfaces carefully. Preparation in the ascending colon and transverse colon was very good, although did require some irrigation. Preparation in the descending and sigmoid colon was limited due to some solid stool. I did not visualize any sign of polyps, colitis, nor angiodysplasia. Although again visualization, particularly in the left colon was limited. In the rectum, scope was retroflexed visualizing some internal hemorrhoids, but no other pathology. The rectal mucosa appeared normal. Scope was straightened and withdrawn from the patient. He tolerated the procedure well and was returned to the recovery area in stable condition. IMPRESSION: 1. Internal hemorrhoids. 2. Diverticulosis. PLAN: Given today's negative colonoscopy, a negative Cologuard test, and no first-degree relatives with colorectal cancer, I would recommend a repeat colonoscopy within 3 years for further screening with a better prep. He is presently not having any symptoms to suggest a need to do so sooner and again had a negative Cologuard test about 2 years ago and the exam today was otherwise negative, although again the prep in the left colon was somewhat limited. He will call sooner if he has any problems such as bleeding. This has been discussed with his mother. MD ADOLPH Dennison/ES / [phone] YEESNIA
== END 2025-06-11 12:33 | disposition home or self-care (01) ==
PROVIDERS: PCP Internal Medicine; Visit Provider Internal Medicine
PROC: 0DJD8ZZ Inspection of Lower Intestinal Tract, Via Natural or Artificial Opening Endoscopic (ICD-10-PCS; CPT 45378; principal; 2025-06-11 10:30)
DX: Z12.11 Encounter for screening for malignant neoplasm of colon (principal); K57.30 Diverticulosis of large intestine without perforation or abscess without bleeding; K64.8 Other hemorrhoids; G35 Multiple sclerosis; E78.00 Pure hypercholesterolemia, unspecified
CPT/HCPCS: 45378; J2704

== ENCOUNTER 2025-07-04 08:46 | Outpatient (AMB) | payer OTHER, SELFPAY ==
--- NOTE | 2025-07-04 08:59 | MHC.OFFVIS ---
Intake Visit Reasons: Elevated PSA Intake Note: patient presents today for: new pt elavated PSA urology medications: none blood thinners: none labs done 03/06/25: t-psa 3.7, % psa14, free psa 0.5 Plugger Worker Required: No Accompanied by: Parent Allergies No Known Allergies Allergy (Verified 07/04/25 09:01) HPI Comments Details: Jonathan is a pleasant male. He is a patient of Dr. Paz. He is seen for the following urologic conditions - elevated PSA Accompanied by his mother Elevated PSA in the setting of multiple sclerosis On immune modifying medications which are known to cause variation in PSA PSA - 03/18 3.7 14% 4 month follow-up repeat PSA and prostate MRI [facility] Medical History Psoriasis Elevated cholesterol Ataxia Multiple sclerosis, relapsing-remitting Colonoscopy refused Surgical History No pertinent past surgical history Family History Maternal Grandfather Colon cancer Maternal Grandmother Lung cancer Other Mental health disorder Social History Housing: House Are you a primary healthcare marketer to a significant other at home: No Do you presently have visiting nurse or other home services: No Alcohol intake: never Patient Tobacco Use Status: Never used Tobacco e-Cigarette/Vaping Use: Never Used Second Hand Smoke Exposure: No service: No Current occupational status: unemployed Cognitive needs: No Hearing needs: No Vision needs: No Review of Systems Const Denies chills and Denies fever(s) Card Reports no additional complaints and Denies syncope Resp Denies cough GI Denies abdominal pain and Denies heartburn Reports as per HPI and Denies change in libido Neuro Denies syncope Psych Denies change in libido Endo Denies change in libido Physical Exam Const General: cooperative, healthy appearing, comfortable and no acute distress Orientation/consciousness: patient oriented x3 HEENT Face and sinus: Yes normal facial exam Mouth: moist mucous membranes Neck Neck: Yes normal visual inspection, Yes full ROM and Yes trachea midline Chest Chest palpation & inspection: normal inspection of the chest Resp Effort & Inspection: normal respiratory effort, able to speak in complete sentences and no respiratory distress GI Inspection: Yes normal to inspection Back/Spine/Pelvis Cervical Spine: normal cervical lordosis Thoracic/Lumbar Spine: thoracic and lumbar spine normal to inspection Skin General skin exam: no rashes or lesions noted Neuro General: patient oriented x3, gait normal, tone normal and moves all extremities Extrem General: Yes normal to inspection and Yes capillary refill normal Results AMB Urinalysis, Automated UA Leukoctes 0 Patti/uL Last Edit by ALE Araujo on 07/04/25 09:11 UA Nitrite Negative Last Edit by ALE Araujo on 07/04/25 09:11 UA Urobilinogen 0.2 mg/dL Last Edit by ALE Araujo on 07/04/25 09:11 UA Protein 0 mg/dL Last Edit by Bambi Morillo CCM on 07/04/25 09:11 UA pH 6.5 Last Edit by Bambi Morillo CCM on 07/04/25 09:11 UA Blood 0 Memo/uL Last Edit by ALE Araujo on 07/04/25 09:11 UA Specific [place] 1.010 Last Edit by ALE Araujo on 07/04/25 09:11 UA Ketone Negative Last Edit by ALE Araujo on 07/04/25 09:11 UA Bilirubin 0 mg/dL Last Edit by ALE Araujo on 07/04/25 09:11 UA Glucose 0 mg/dL Last Edit by Bambi Morillo [facility] on 07/04/25 09:11 Assessment & Plan Assessment & Plan (1) PSA elevation: Code(s): R97.20 - Elevated prostate specific antigen [PSA] Category: Medical Plan Prostate MRI PSA repeat four-month Orders: Orders AMB Urinalysis Automated Today Z13.9 - Encounter for screening, unspecified MR Prostate wo/w con Today R97.20 - Elevated prostate specific antigen [PSA] PSA,Total (Free>4and<10) 4 Months R97.20 - Elevated prostate specific antigen [PSA] Patient Instructions: This note is constructed using voice recognition software. While every effort has been made to ensure accuracy local company truck driver errors may have been included. Imaging studies, laboratory and physical exam results were discussed and reviewed in detail. No major barriers to patient understanding were identified. An opportunity to ask questions regarding the treatment plan was provided. All questions were answered. The patient expressed understanding and agreement with the above treatment plan. The patient is aware they should contact our office by phone for worsening of their current condition or the appearance of new urologic symptoms. Compliance is encouraged with any medications and followup testing that is ordered. It is a privilege to participate in the urologic care of your patient. If you have any questions or concerns regarding treatment for the above conditions, or other urologic issues, please do not hesitate to contact me. The office telephone contact is [phone]. Sincerely, Dr Ramiro Figueroa MD, [facility] - Urology Compassionate Specialist Care for the Genitourinary System Coding Level of Care Code New Pt Level 4 (06096) Diagnoses PSA elevation R97.20
--- OUTSIDE RECORDS SUMMARY | 2025-07-04 10:14 | XMS_ITS | Clinical Summary ---
Author Organization [facility] Address [address] [place], [place] [id number] Phone Care Team Providers Care Oil Plant Operator Name Role Phone Zeb Paz MD Primary Care Provider [phone] Social History Tobacco Use Types Packs/Day Years Used Date Smoking Tobacco: Never Assessed Sex and Gender Information Value Date Recorded Sex Assigned at Not on file Legal Sex Male 2:34 PM EST Gender Identity Not on file Sexual Orientation Not on file Plan of Treatment Not on file Medical Devices Not on file Insurance [facility] ACO Care Teams Oil Plant Operator Relationship Specialty Start Date End Date Zeb Paz MD [address] [place] [address] PCP - General Internal Medicine 10/11/24 Additional Source Comments The information contained in this document represents components of the legal health record. It is not the complete legal health record.[facility]
--- OUTSIDE RECORDS SUMMARY | 2025-07-04 10:14 | XMS_ITS | Clinical Summary ---
Author Organization [facility] Address [address] [place] [address] Phone Care Team Providers Care Journeyman Sheet Metal Worker Name Role Phone Zeb Paz MD Primary Care Provider [phone] Allergies No known active allergies Medications ocrelizumab (OCREVUS IV) Infuse into a venous catheter. Active ergocalciferol (VITAMIN D-2) 1,250 mcg (50,000 unit) capsule Take 1 capsule (50,000 Units total) by mouth 1 (one) time per week. 4 each 11 5 04/10/20 26 Active dalfampridine 10 mg tablet extended release 12 hr TAKE 1 TABLET EVERY 12 HOURS 60 tablet 3 5 Active dalfampridine 10 mg tablet extended release 12 hr Take 10 mg by mouth every 12 (twelve) hours. 60 tablet 3 5 07/02/20 25 Discontinued Active Problems Problem Noted Date Diagnosed Date MS (multiple sclerosis) (CMS/HCC V24, CMS/[facility] V2 8) 01/19/2025 Encounters Date Type Department Care Team Description 06/21/2025 Telephone [facility] [address] [place] [address] Livier Sanchez MD 04/19/2025 7:45 AM EDT - 04/19/2025 11:59 PM EDT Hospital Encounter [facility] [address] [place] [address] Multiple sclerosis (CMS/HCC V24, CMS/HCC V28) Discharge Disposition: Home or Self Care 04/19/2025 7:45 AM EDT - 04/19/2025 11:59 PM EDT Hospital Encounter [facility] [address] [place] [phone] Multiple sclerosis ([facility] V24, [facility] V28) Discharge Disposition: Home or Self Care 04/17/2025 Telephone [facility] [address] [phone] Rios Watson [place] 04/10/2025 8:30 AM EDT Office Visit [facility] [address] [phone] Livier Sanchez MD Multiple sclerosis ([facility] V24, [facility] V28) (Primary Dx); Gait abnormality; Ataxia from Last 3 Months Social History Tobacco [...] Info) Description 08/01/2025 8:00 AM EDT Appointment [facility] [place] [address] [place] [phone] 08/01/2025 8:30 AM EDT Office Visit [facility] [address] [place] [phone] Saritha James PA [address] [place] [address] Health Maintenance Due Date Last Done Comments DTaP,Tdap,and Td Vaccines (1 - Tdap) 1995 Hepatitis B Vaccines (1 of 3 - 19+ 3-dose series) 1995 Cholesterol Screening (Lipid Panel) 09/07/2024 Social Influencers of Health Screening 09/07/2024 Depression Screening 10/25/2024 COVID-19 Vaccine ( - 2023-2 5 season) 2025 Influenza Vaccine (#1) 2025 Colorectal Cancer Screening: [...] Routine 04/19/2025 9:07 AM EDT Multiple sclerosis ([facility] V24, [facility] V28) MR CERVICAL SPINE WO AND W [...] Signed Date: 04/19/2025 12:59 ET Workstation ID: [id number] Transcribed By: Self Edit Transcribed Date: 04/19/2025 [...] Signed Date: 04/19/2025 12:59 ET Workstation ID: [id number] Transcribed By: Self Edit Transcribed Date: 04/19/2025 12:17 ET Livier Sanchez MD IM MRI PROCEDURES Final Result * MR Cervical [...] Signed Date: 04/19/2025 13:03 ET Workstation ID: [id number] Transcribed By: Self Edit Transcribed Date: 04/19/2025 [...] Signed Date: 04/19/2025 13:03 ET Workstation ID: [id number] Transcribed By: Self Edit Transcribed Date: 04/19/2025 12:16 ET Livier Sanchez MD IM MRI PROCEDURES Final Result * Hepatitis C antibody (12/08/2024 9:18 AM EST) Hepatitis C Antibody Negative Negative LAB CHEMISTRY METHOD 12/08/2024 2:51 PM EST [facility] Blood Venous blood specimen / Unknown Venipuncture / Unknown 12/08/2024 9:18 AM EST 12/08/2024 9:18 AM EST us Livier Sanchez MD LAB BLOOD ORDERABLES Fin al Result Performing Organization Address City/[facility]/ZIP Co de Phone Number [facility] [address] [place] [address], [place] [phone] * HIV 1,2 antibody, p24 antigen with reflex to differentiation (12/08/2024 9:18 AM EST) [facility] HIV Combo AB/AG Negative Negative LAB CHEMISTRY METHOD 12/08/2024 2:52 PM EST [facility] Blood Venous blood specimen / Unknown Venipuncture / Unknown 12/08/2024 9:18 AM EST 12/08/2024 9:18 AM EST Narrative [facility] - 12/08/2024 2:52 PM EST [...] ORDERABLES Fin al Result Performing Organization Address [facility]/ZIP Co de Phone Number [facility] [address] [place] [address], [place] [phone] from Last 3 Months or Most Recently Relevant to Health Maintenance Insurance [place] [address] Care Teams Journeyman Sheet Metal Worker Relationship Specialty Start Date End Date Zeb Paz MD [address] [place] [phone] PCP - General Internal Medicine 02/15/25
== END 2025-07-04 09:26 | disposition home or self-care (01) ==
LOC: HO.HUSH 08:47
PROVIDERS: PCP Internal Medicine; Visit Provider Urology
DX: R97.20 Elevated prostate specific antigen [PSA] (principal); Z13.9 Encounter for screening, unspecified
CPT/HCPCS: 99204

== ENCOUNTER → 2025-07-04 08:46 | Outpatient (BNVA) | payer OTHER, SELFPAY | PROVIDERS: PCP Internal Medicine; Visit Provider Urology | DX: R97.20 Elevated prostate specific antigen [PSA] (principal) | CPT/HCPCS: 81003; 99202 ==